=== PATIENT | female | born 2000 | race Caucasian/White ===

== ENCOUNTER 2020-04-14 09:22 | Outpatient (CLI) | payer BC, SELFPAY ==
--- NOTE | ~2020-04-14 | US_ITS ---
EXAMINATION: US OB <= 14 weeks fetus DATE: 04/14/2020 10:04 INDICATION: Spotting during first trimester . TECHNIQUE: Real-time pelvic ultrasound utilizing both a transvaginal and transabdominal probe was pe rformed. The interpreting radiologist was not present for the study. COMPARISON: None. FINDINGS: The uterus measures 10.3 x 5.8 x 7.9 cm. There is an intrauterine gestational sac. A yolk sac and fe fani pole are identified. The crown rump length measures 2.2 cm, which correlates with an estimated ge stational age of 8 weeks and 6 days. heart motion is identified measuring 173 beats per minute (bpm) by M-mode Doppler. The placenta appears to be developing posteriorly. No evident subchorionic h ematoma. The right ovary is not visualized. The left ovary measures 1.7 x 1.5 x 1.5 cm. There is no free fluid in the pelvis. IMPRESSION: 1. Single living fetus with heart rate of 173 bpm. 2. Gestational age by ultrasound of 8 weeks 6 day(s) +/- 6 day(s) with ultrasound estimated date of delivery (TICO) of 11/18/2020. Reviewed, dictated and finalized at location A. IMPRESSION: 1. Single living fetus with heart rate of 173 bpm. 2. Gestational age by ultrasound of 8 weeks 6 day(s) +/- 6 day(s) with ultraso und estimated date of delivery (TICO) of 11/18/2020.
== END 2020-04-14 09:23 | disposition home or self-care (01) ==
LOC: ANHIMG 09:35
PROVIDERS: PCP Family Medicine; Visit Provider Obstetrics & Gynecology Gynecology
DX: O26.851 Spotting complicating pregnancy, first trimester (principal); Z3A.08 8 weeks gestation of pregnancy
CPT/HCPCS: 76801

== ENCOUNTER 2020-05-20 10:44 | Outpatient (CLI) | payer BC, SELFPAY ==
[2020-05-20 11:11] LABS: Basophils Percent Auto 0.2 % (0.2-1.2); Eosinophils Absolute Auto 0.1 K/mm3 (0-0.3); Eosinophils Percent Auto 1.3 % (0-4.4); Hematocrit 37.3 % (37.0-47.0); Immature Granulocyte Absolute 0.03 K/mm3 (0.00-0.031); Immature Granulocyte Percent A 0.3 % (0-0.5); Lymphocytes Absolute Auto 1.37 K/mm3 (0.9-3.2); Lymphocytes Percent Auto 12.8 % (18.3-44.2); Mean Corpuscular HGB Conc 34.9 g/dl (32-36); Mean Corpuscular Hemoglobin 28.3 pg (26-34); Mean Corpuscular Volume 81.1 fl (80-100); Mean Platelet Volume 10.3 fl (7.4-10.4); Monocytes Absolute Auto 0.6 K/mm3 (0.1-0.6); Monocytes Percent Auto 5.2 % (2.6-8.5); Neutrophils Absolute Auto 8.6 K/mm3 (1.3-6.7); Neutrophils Percent Auto 80.2 % (45.5-73.1); Platelet Count Result 273 k/mm3 (150-375); Red Cell Distribution Width 13.7 % (11.5-14.5); White Blood Count 10.7 K/mm3 (4.5-10.0)
[2020-05-20 11:26] LABS: Hemoglobin A1C 4.9 % (<5.7)
[2020-05-20 11:57] LABS: Free T4 Free Thyroxine 1.05 ng/mL (0.78-2.19)
[2020-05-20 12:11] LABS: HIV 1/2 Ab P24 Ag Result Negative (Negative)
[2020-05-20 12:26] LABS: Hepatitis B Surface Antigen Negative (Negative); Rubella IgG Antibody 14.1 IU/ML
[2020-05-23 07:20] LABS: Rapid Plasma Reagin Non-Reactive (NonReactive)
== END 2020-05-20 10:45 | disposition home or self-care (01) ==
PROVIDERS: PCP Family Medicine; Visit Provider Obstetrics & Gynecology Gynecology
DX: Z36.9 Encounter for antenatal screening, unspecified (principal)
CPT/HCPCS: 36415; 82306; 83036; 84439; 84443; 85025; 86592; 86703; 86762; 86900; 86901; 87340; G0432

== ENCOUNTER 2020-06-30 13:01 | Outpatient (CLI) | payer BC, SELFPAY ==
--- NOTE | ~2020-06-30 | US_ITS ---
EXAMINATION: US OB /maternal detail EXAM DATE: 06/30/2020 14:02 INDICATION: anatomy. 2nd trimester. TECHNIQUE: Pelvic obstetrical transabdominal sonogram was performed by a technologist. There are mu ltiple grayscale and Doppler images available for interpretation. Comparison is made to prior examina tion from 04/14/2020. FINDINGS: There is a single fetus identified in variable presentation with a heart rate of 150 beats per minute. The placenta is located in the posterior position. There is no sonographic evidence of r etroplacental hemorrhage identified. Low-lying placenta, with margin to internal cervical os about 1. 4 cm. BIOMETRIC DATA: Biparietal diameter (BPD): 4.5cm ----------------> 19 weeks 4 days. Head circumference (HC): 17.1 cm ----------------> 19 weeks 5 days. Abdominal circumference (AC): 14.5 cm ----------> 19 weeks 6 days. Femur length (FL): 3.3 cm --------------------------> 20 weeks 2 days. These measurements are concordant. HC/AC ratio is 1.18 (The 5th -- 95th percentile range is 1.08-1.26. Estimated weight is 328 g +/- 49 g. This is the 39th percentile when the currently reported cl inical gestation age 20 weeks 1 day, clinical estimated date of delivery (TICO-OPE) 11/16/2020 is used. estimated gestational age based on measurements from this exam is 19 weeks 6 days, with an est imated date of delivery (TICO-AUA) 11/18/2020. ANATOMIC SURVEY: The following anatomy is identified and is sonographically normal in appearance: Cerebral ventricles Cerebellum Cisterna magna Nuchal fold CTL-spine Four-chamber heart Diaphragm Stomach Kidneys Bladder Three-vessel cord Cord insertion IMPRESSION: 1. Single fetus in variable presentation with heart rate 150 beats per minute. 2. Estimated weight of 328 grams, 39th percentile using the currently reported clinical gestat ion age of 19 weeks 6 days, TICO(OPE) 11/18. 3. Low-lying placenta. Reviewed, dictated and finalized at location A. IMPRESSION: 1. Single fetus in variable presentation with heart rate 150 beats per minute. 2. Estimated weight of 328 grams, 39th percentile using the currently re ported clinical gestation age of 19 weeks 6 days, TICO(OPE) 11/18. 3. Low-lying placenta.
== END 2020-06-30 13:02 | disposition home or self-care (01) ==
PROVIDERS: PCP Family Medicine; Visit Provider Nurse Practitioner
DX: Z36.9 Encounter for antenatal screening, unspecified (principal); Z3A.19 19 weeks gestation of pregnancy
CPT/HCPCS: 76805

== ENCOUNTER 2020-07-11 17:30 | Outpatient (CLI) | payer BC, SELFPAY | END 2020-07-11 17:55 | disposition home or self-care (01) | LOC: ANHOBOP 17:37 → ANHOBPP 17:40 | PROVIDERS: PCP Family Medicine; Visit Provider Obstetrics & Gynecology Gynecology | DX: O36.8121 Decreased fetal movements, second trimester, fetus 1 (principal); Z3A.21 21 weeks gestation of pregnancy | CPT/HCPCS: 99199 ==

== ENCOUNTER 2020-07-29 10:21 | Outpatient (CLI) | payer BC, SELFPAY ==
--- NOTE | ~2020-07-29 | US_ITS ---
EXAMINATION: US OB /maternal detail DATE: 07/29/2020 10:51 INDICATION: Low lying placenta TECHNIQUE: Real-time ultrasound of the pelvis was performed. The interpreting radiologist was not pre sent for the study. COMPARISON: None. FINDINGS: There is a single living fetus in breech presentation. The placenta is posterior and not low-lying w ith caudal margin 7.7 cm from the internal cervical os. heart rate is 157 beats per minute (bpm ). The amniotic fluid volume is subjectively normal. IMPRESSION: 1. Single living fetus in breech presentation with heart rate of 157 bpm. 2. Normal posterior placenta which is not low-lying. Reviewed, dictated and finalized at location H. [employer] IMPRESSION: 1. Single living fetus in breech presentation with heart rate of 157 bpm . 2. Normal posterior placenta which is not low-lying.
== END 2020-07-29 10:22 | disposition home or self-care (01) ==
LOC: ANHIMG 10:22
PROVIDERS: PCP Family Medicine; Visit Provider Obstetrics & Gynecology Gynecology
DX: O44.12 Complete placenta previa with hemorrhage, second trimester (principal); Z3A.24 24 weeks gestation of pregnancy
CPT/HCPCS: 76805

== ENCOUNTER 2020-08-29 10:18 | Outpatient (CLI) | payer BC, SELFPAY ==
[2020-08-29 12:10] LABS: Hemoglobin 9.7 g/dL (12.0-15.0)
[2020-08-29 12:28] LABS: Glucose 1 Hour PP 50gm Dose 113 mg/dL
[2020-08-29 13:06] LABS: HIV 1/2 Ab P24 Ag Result Negative (Negative)
[2020-08-29 13:29] LABS: Vitamin D 25 Hydroxy 32.8 ng/mL
== END 2020-08-29 10:19 | disposition home or self-care (01) ==
LOC: ANHLAB 10:19
PROVIDERS: PCP Family Medicine; Visit Provider Obstetrics & Gynecology Gynecology
DX: Z34.93 Encounter for supervision of normal pregnancy, unspecified, third trimester (principal); Z3A.00 Weeks of gestation of pregnancy not specified
CPT/HCPCS: 36415; 82306; 82947; 85014; 85018; 86703; 86850; G0432

== ENCOUNTER 2020-10-10 10:48 | Outpatient (CLI) | payer BC, SELFPAY ==
[2020-10-10 13:20] LABS: Hemoglobin 10.4 g/dL (12.0-15.0); Mean Corpuscular HGB Conc 32.5 g/dl (32-36); Mean Corpuscular Hemoglobin 27.6 pg (26-34); Mean Corpuscular Volume 84.9 fl (80-100); Mean Platelet Volume 10.1 fl (7.4-10.4); Platelet Count Result 264 k/mm3 (150-375); Red Blood Count 3.77 M/mm3 (4.2-5.4); Red Cell Distribution Width 16.1 % (11.5-14.5); White Blood Count 10.5 K/mm3 (4.5-10.0)
== END 2020-10-10 10:49 | disposition home or self-care (01) ==
PROVIDERS: PCP Family Medicine; Visit Provider Obstetrics & Gynecology Gynecology
DX: Z34.93 Encounter for supervision of normal pregnancy, unspecified, third trimester (principal); Z3A.00 Weeks of gestation of pregnancy not specified
CPT/HCPCS: 36415; 85027

== ENCOUNTER 2020-11-02 21:32 | Observation (INO) | payer BC, MEDICAID, SELFPAY ==
--- NOTE | 2020-11-02 21:32 | OBADM ---
This patient, Avril Fowler, admitted to the OB room OB Post 115 for observation. Patient/family oriented to hospital policies and general routines including ID bracelet, bed and alarms, visiting hours, pain management, procedures, bathroom and other care routines, personal items, smoking policy, room service/diet, and visiting hours. Patient/Family are encouraged to report perceived risks to care and to ask questions if they do not understand what they are told or what they should do.
[2020-11-02 21:45] VITALS: BMI 38.9
[2020-11-02 21:48] VITALS: BP 134/80; PULSE 90
[2020-11-02 22:01] VITALS: BP 135/75; PULSE 90
[2020-11-02 22:16] VITALS: BP 133/72; PULSE 87
[2020-11-02 22:31] VITALS: BP 124/71; PULSE 79
[2020-11-02 22:46] VITALS: BP 95/78; PULSE 87
--- NOTE | 2020-11-02 23:05 | PC.NURSE ---
Dr. Castañeda notified of admission and assessment. Pt can be discharged home if not cervical change. Pt BP is WNL. Pt appears comfortble. Pt states she has medication for nausea and will take Tylenol at home. Pt agreeable with plan for discharge. SVE 2.5 cm. Pt states she has been same with office exam.
--- NOTE | 2020-11-12 09:40 | PM.OBTRLD ---
OB - Triage/Final Diagnosis Visit Information Comments/Additional reasons for admission: I have assessed the risk for this patient, Avril Fowler, and determined that she would benefit from observation care. Final Diagnosis (1) False labor: Code(s): O47.9 - False labor, unspecified Status: Acute
== END 2020-11-02 23:18 | disposition home or self-care (01) ==
PROVIDERS: Admitting Provider Obstetrics & Gynecology; PCP Family Medicine; Visit Provider Obstetrics & Gynecology
DX: O47.1 False labor at or after 37 completed weeks of gestation (principal); Z3A.38 38 weeks gestation of pregnancy
CPT/HCPCS: G0378; G0379

== ENCOUNTER 2020-11-10 05:55 | Inpatient (IN) | payer BC, MEDICAID, SELFPAY ==
[2020-11-10] VITALS (95 sets, daily range): BP systolic 80–138; BP diastolic 54–99; PULSE 66–131; RESP 16–17; TEMP 36.6–36.9; O2SAT 98–100; BMI 38.8
[2020-11-10 06:50] LABS: Basophils Percent Auto 0.3 % (0.2-1.2); Eosinophils Absolute Auto 0.2 K/mm3 (0-0.3); Eosinophils Percent Auto 1.8 % (0-4.4); Hematocrit 33.3 % (37.0-47.0); Hemoglobin 11.2 g/dL (12.0-15.0); Immature Granulocyte Absolute 0.06 K/mm3 (0.00-0.031); Immature Granulocyte Percent A 0.6 % (0-0.5); Lymphocytes Absolute Auto 1.75 K/mm3 (0.9-3.2); Lymphocytes Percent Auto 16.2 % (18.3-44.2); Mean Corpuscular HGB Conc 33.6 g/dl (32-36); Mean Corpuscular Volume 83.3 fl (80-100); Mean Platelet Volume 9.6 fl (7.4-10.4); Monocytes Percent Auto 9.4 % (2.6-8.5); Neutrophils Absolute Auto 7.8 K/mm3 (1.3-6.7); Neutrophils Percent Auto 71.7 % (45.5-73.1); Platelet Count Result 217 k/mm3 (150-375); Red Cell Distribution Width 15.9 % (11.5-14.5); White Blood Count 10.8 K/mm3 (4.5-10.0)
[2020-11-10] MEDS: ceFAZolin 2 GM/D5W 50 ML 2 GM/50 ML BAG IVPB (06:59)
[2020-11-10] MEDS: LACTATED RINGERS 1,000 ML 125 ML IV CONT ×2 (07:00→08:13)
[2020-11-10] MEDS: OXYTOCIN 30 UNITS/NS 500 ML 30 UNITS/500 ML BAG IV CONT (07:00)
--- NOTE | 2020-11-10 07:45 | WPDOBADMIT ---
Obstetrics - Admit Note Admission Note: record reviewed. No pertinent additions to the history and/or any subsequent changes in the physical findings that are not consistent with the expected course of the were found. Additions to the history and/or subsequent changes in the physical findings follow. None.Here for MIL. Cervix 4/-2 AROM with clear fluid. FHTs reactive
[2020-11-10 07:50] LABS: Rapid Plasma Reagin Non-Reactive (NonReactive)
--- NOTE | 2020-11-10 08:08 | LDADM ---
This patient, Avril Fowler, was admitted to Labor/Delivery/Recovery 104 on 11/10/20 at 05:55. Plans for labor, pain management and were discussed with patient. Patient/family oriented to hospital policies and general routines including ID bracelet, bed and alarms, visiting hours, pain management, procedures, bathroom and other care routines, personal items, smoking policy, room service/diet and guest tray routines, security routines, and visiting hours. Patient/Family are encouraged to report perceived risks to care and to ask questions if they do not understand what they are told or what they should do. See OBIX for further documentation.
--- NOTE | 2020-11-10 08:13 | WPDANESEPPF ---
Anes - Initial Pre Proc Eval Date/Time: 11/10/20 08:13 Surgeon: Ivett Metz MD Pre Op Diagnosis: Induction of Labor Patient Data Age: 20 Gender: F Height: 1.65 m Weight: 105.9 kg Last Vital Signs Temp 36.9 C 11/10/20 07:05 Pulse 74 11/10/20 08:01 BP 107/79 11/10/20 08:01 Allergies Allergy/AdvReac Type Severity Reaction Status Date / Time Penicillins Allergy Mild Verified 02/09/19 02:50 Sulfa (Sulfonamide Allergy Mild Verified 02/09/19 02:50 Antibiotics) Home Medications Medication Instructions Recorded Confirmed Type PNV cmb#95-ferrous fumarate-FA 1 tablet PO DAILY 10/20/20 11/02/20 History [] docusate sodium 50 mg PO DAILY 10/20/20 11/02/20 History ergocalciferol (vitamin D2) See Rx Instructions .ROUTE .COMPLEX 10/20/20 11/02/20 History [Vitamin D2] ferrous sulfate [Iron (ferrous 325 mg PO BID 10/20/20 11/02/20 History sulfate)] sertraline 50 mg PO DAILY 10/20/20 11/02/20 History Laboratory Tests 11/10/20 11/10/20 06:25 06:25 WBC 10.8 K/mm3 H K/mm3 (4.5-10.0) RBC 4.00 M/mm3 L M/mm3 (4.2-5.4) Hgb 11.2 g/dL L g/dL (12.0-15.0) Hct 33.3 % L % (37.0-47.0) MCV 83.3 fl fl (80-100) MCH 28.0 pg pg (26-34) MCHC 33.6 g/dl g/dl (32-36) RDW 15.9 % H % (11.5-14.5) Plt Count 217 k/mm3 k/mm3 (150-375) MPV 9.6 fl fl (7.4-10.4) Immature Gran % (Auto) 0.6 % H % (0-0.5) Neut % (Auto) 71.7 % % (45.5-73.1) Lymph % (Auto) 16.2 % L % (18.3-44.2) [place] % (Auto) 9.4 % H % (2.6-8.5) Eos % (Auto) 1.8 % % (0-4.4) Baso % (Auto) 0.3 % % (0.2-1.2) Lymph # (Auto) 1.75 K/mm3 K/mm3 (0.9-3.2) [place] # (Auto) 1.0 K/mm3 H K/mm3 (0.1-0.6) Eos # (Auto) 0.2 K/mm3 K/mm3 (0-0.3) Baso # (Auto) 0.0 K/mm3 K/mm3 (0.0-0.1) Abs Immat Gran (auto) 0.06 K/mm3 H K/mm3 (0.00-0.031) Absolute Neuts (auto) 7.8 K/mm3 H K/mm3 (1.3-6.7) Absolute Nucleated RBC 0.0 K/mm3 K/mm3 (0.0-0.012) Nucleated RBC % 0.0 % % (0.0-0.2) RPR Non-reactive (NonReactive) Patient hx anesthesia problems: none Family hx anesthesia problems: none PMFSH Family History Family History (Updated 10/20/20 @ 12:39 by Dario Turner RN) Other Rheumatoid arthritis Mother Rheumatoid arthritis Social History Social History Smoking status: Former smoker Substance use: never Gender identity (if verbalized by the patient): Female Spiritual care concerns: No Anes - Eval Final PreProcedure Day of Procedure 11/10/20 08:13 Patient weight: obese Heart: regular rate and rhythm Lungs: clear to auscultation and normal air movement Airway: Mallampati scale class II Neurological: alert and oriented Last oral intake: >/= 8 hours ASA classification: II Emergent: no Anesthetic plan: proceed Anesthesia type and monitoring: regional epidural Informed Consent: The patient's anesthetic plan and its attendant risks and benefits were discussed with the patient/family/POA. Questions were solicited and answers provided to the satisfaction of the patient/family/POA.
--- NOTE | 2020-11-10 12:19 | PM.OBPRVD ---
OB - Delivery Note Procedure Delivery date: 11/10/20 Procedure: events: Labor Induction Intrapartal events: None Induction method: AROM and per pitocin protocol Delivery monitor: external FHT and external uterine Route of delivery: Laceration Description: Periurethral (left) and Labial (right) Delivery repair: vicryl (3-0 and 4-0 on sh) Specimen: No Quantitative Blood Loss (ml): 352 Anesthesia type: Epidural Disposition: floor Baby Date of : 11/10/20 Weeks of gestation at delivery: 39 Infant gender: Female Weight (pounds): 8 Weight (ounces): 3 presentation: vertex position: Right Occiput Anterior Placenta delivery description: Spontaneous cord vessel description: 3 Vessels score one minute: 9 score five minutes: 9
--- NOTE | 2020-11-10 12:20 | PM.OBDSVD ---
DS: Admitting Diagnosis Admitting Diagnosis Admitting Diagnosis: IUP 39 wk DS: Discharge Diagnosis Discharge Diagnosis (1) (normal spontaneous vaginal delivery): Code(s): O80 - Encounter for full-term uncomplicated delivery Status: Acute OB - DS: Summary OB Procedures : Ultrasound OB Procedures Intrapartum: Spontaneous Vag Delivery OB Procedures: : None Peripartum Data Delivery Method: Natural Vaginal Laceration Description: Periurethral and Labial complications: none Status at Discharge Functional status at discharge: independent ambulation Overall status at discharge: patient is not back to baseline Time Spent with Patient Time attestation: Total time spent providing and/or coordinating discharge services: DS: Data Data Completed and Pending Labs on day of discharge: Labs from last 24 hours 11/10/20 11/10/20 11/10/20 06:25 06:25 06:25 WBC 10.8 H RBC 4.00 L Hgb 11.2 L Hct 33.3 L MCV 83.3 MCH 28.0 MCHC 33.6 RDW 15.9 H Plt Count 217 MPV 9.6 Immature Gran % (Auto) 0.6 H Neut % (Auto) 71.7 Lymph % (Auto) 16.2 L [place] % (Auto) 9.4 H Eos % (Auto) 1.8 Baso % (Auto) 0.3 Lymph # (Auto) 1.75 [place] # (Auto) 1.0 H Eos # (Auto) 0.2 Baso # (Auto) 0.0 Abs Immat Gran (auto) 0.06 H Absolute Neuts (auto) 7.8 H Absolute Nucleated RBC 0.0 Nucleated RBC % 0.0 RPR Non-reactive Blood Type A Positive Antibody Screen Negative Discharge Plan Discharge Attending physician on discharge: Ivett Metz Discharging Clinician: Maxwell Castañeda Anticipated Discharge Date/Time: 11/12/20 12:21 Patient Disposition: Home, Self-Care Activity: may shower and pelvic rest Diet: regular Discharge Instructions: Education: Mom and Baby Guide Given to: Mother Follow-Up: Call your delivering provider's office for an appointment to be seen in: 6 Weeks Mom and baby should come to the [facility] for the follow-up appointment. Appointment Date/Time: November 21, 2020 at 9:00 am What to expect at your follow-up visit: Blood Pressure Check Physical Assessment Call [phone] if you are unable to keep your appointment time. BREAST CARE: * Wear a snug supportive bra. * For engorgement discomfort: Breast Feeding: * Apply warm moist washcloths * Express milk as needed to relieve engorgement * Wear loose clothing * For sore nipples: * Identify correct latch-on * Apply warm moist washcloths before and after nursing * Air dry nipples after nursing * May apply Lansinoh cream to nipples EPISIOTOMY/PERINEAL CARE: * Until bleeding stops, use your ana bottle after urinating * Change your pad frequently throughout the day * You may take sitz baths several times a day (fill your bathtub with warm water and soak for 20 minutes.) Do NOT bathe in the water * No tub baths until seen by your physician - You may shower ACTIVITY: * Rest as much as possible. * Do not exercise or lift anything heavier than your baby (such as laundry or other children.) * Avoid stairs or driving as much as possible for about 2 weeks. * Do not put anything into the vagina. No douching, tampons, or sexual activity until seen by physician. NOTIFY PHYSICIAN IF YOU HAVE ANY QUESTIONS OR IF ANY OF THE FOLLOWING SYMPTOMS OCCUR: * If your vaginal area becomes red, swollen, or more painful than what you have experienced in the hospital. * If your vaginal bleeding becomes foul smelling. * If your vaginal bleeding becomes more heavy than a period or if your bleeding changes from pink to bright red. However, you may pass an occasional walnut-sized clot once or twice for the first week . * If you experience a sharp, shooting pain in your calves. * If you discover a hard, reddened area on your breast or if you exper
[2020-11-10] MEDS: OXYTOCIN 30 UNITS/NS 500 ML 30 UNITS/500 ML BAG 125 UNITS IV CONT (12:44)
--- NOTE | 2020-11-10 14:40 | PC.NURSE ---
Patient transferred to post room #282 via wheelchair. Support person present. Oriented to unit, room, information board, rooming in, admission packet and security measures. Patient verbalizes understanding.
[2020-11-10] MEDS: WITCH HAZEL 40 PADS 1 PAD TOPICAL (15:33)
[2020-11-10] MEDS: BENZOCAINE 20% AER SPR (*SP) 56 GM CAN 1 SPRAY TOPICAL (15:33)
[2020-11-10] MEDS: IBUPROFEN 600 MG TABLET PO ×2 (16:28→23:24)
[2020-11-11 04:35] VITALS: BP 118/62; PULSE 74; RESP 18; TEMP 36.9
[2020-11-11 05:25] LABS: Hematocrit 32.3 % (37.0-47.0); Hemoglobin 10.7 g/dL (12.0-15.0)
[2020-11-11] MEDS: IBUPROFEN 600 MG TABLET PO ×2 (08:42→21:58)
[2020-11-11] MEDS: WITCH HAZEL 40 PADS 1 PAD TOPICAL (08:43)
[2020-11-11 09:05] VITALS: BP 129/74; PULSE 80; RESP 18; TEMP 37.2; O2SAT 99
--- NOTE | 2020-11-11 09:44 | WPDANLDPN2 ---
Anes-Prog Note L&D Date/Time: 11/11/20 09:44 Comfortable throughout: labor and delivery Neuraxial method: epidural Epidural/Spinal procedure site: clean & non-tender Neuro status: Neuro function grossly intact. Cardiovascular status: normal Respiratory status: normal Airway patency: baseline Mental status: baseline Post-Op hydration status: normal Vital Signs: Last Vital Signs Temp 37.2 C 11/11/20 09:05 Pulse 80 11/11/20 09:05 Resp 18 11/11/20 09:05 BP 129/74 11/11/20 09:05 Pulse Ox 99 11/11/20 09:05 Pain score (VAS): 0 Post-procedural complaints: none Patient feedback: Patient satisfied with anesthetic care.
--- NOTE | 2020-11-11 11:00 | PC.NURSE ---
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 Mother, reports has fed well since . Mother has nipple discomfort with latch during most of the feeding. Reviewed infant feeding cues, frequencies, duration of feedings, feeding elimination flow sheet, and signs of adequate intake. Requested mother to call out for RN assistance/observation next feeding. Instructed feeding should be initiated three hours from start of last feeding or if feeding cues are noted before. Mother voiced understanding of information shared.
[2020-11-11 12:16] VITALS: BP 114/53; PULSE 86; RESP 18; TEMP 36.8; O2SAT 99
--- NOTE | 2020-11-11 12:53 | PM.OBPNVD ---
OB - PN: Subj Subjective Date/time seen: 11/11/20 12:53 no complaints OB - PN: Obj Data Labs CBC & Chem 7: 11/11/20 04:47 Labs: Laboratory Results - last 24 hr 11/11/20 04:47 Hgb 10.7 L Hct 32.3 L OB - PN A/P Assessment and Plan (1) (normal spontaneous vaginal delivery): Code(s): O80 - Encounter for full-term uncomplicated delivery Status: Acute Assessment and Plan: continue with pp care. Time Spent With Patient Time: Total time spent is greater than 50% in coordination of care (as documented) at patient's floor/unit and/or counseling patient: Exam Narrative: Exam Narrative: ff below umbilicus
[2020-11-11 19:50] VITALS: BP 136/78; PULSE 70; RESP 18; TEMP 36.6; O2SAT 99
--- NOTE | 2020-11-11 19:50 | PC.NURSE ---
Patient viewed the discharge video Mother & Baby Care, The First Two Weeks online. Patient was given the opportunity and encouraged to ask questions. Patient verbalized understanding of information shared and has been given the mother/baby guide for home reference.
[2020-11-12 08:00] VITALS: PULSE 70; RESP 18; O2SAT 99
--- NOTE | 2020-11-12 08:48 | P.PNOB_ITS ---
OB - PN: Subj Subjective Date/time seen: 11/12/20 08:48 desires home no complaints OB - PN: Obj Data Labs CBC & Chem 7: 11/11/20 04:47 OB - PN A/P Assessment and Plan (1) (normal spontaneous vaginal delivery): Code(s): O80 - Encounter for full-term uncomplicated delivery Status: Acute Assessment and Plan: d/c home Time Spent With Patient Time: Total time spent is greater than 50% in coordination of care (as documented) at patient's floor/unit and/or counseling patient: Exam 2 Narrative: Exam Narrative: ff below umbilicus
[2020-11-12 09:00] VITALS: BP 115/65; PULSE 75; RESP 18; TEMP 36.6; O2SAT 99
[2020-11-12] MEDS: IBUPROFEN 600 MG TABLET PO (09:20)
[2020-11-12] MEDS: DOCUSATE SODIUM 100 MG CAPSULE PO (09:20)
[2020-11-14 08:48] VITALS: BP 129/64; PULSE 77; RESP 16; TEMP 36.7; O2SAT 99
== END 2020-11-12 12:17 | disposition home or self-care (01) | DRG 807 ==
LOC: ANHLDR 12:22 → ANHOB2 11-11 11:06 → ANHLDR 11-14 20:16 → ANHOB2 11-14 20:16
PROVIDERS: Admitting Provider Obstetrics & Gynecology Gynecology; PCP Family Medicine; Visit Provider Obstetrics & Gynecology
DX: O99.824 Streptococcus B carrier state complicating childbirth (principal); Z37.0 Single live birth; Z3A.39 39 weeks gestation of pregnancy; O99.214 Obesity complicating childbirth; E66.9 Obesity, unspecified; O70.1 Second degree perineal laceration during delivery
CPT/HCPCS: 36415; 85014; 85018; 85025; 86592; 86850; 86900; 86901; A9270; J0690; J2590; J2795; J7120

== ENCOUNTER → 2021-03-14 14:18 | Outpatient (CLI) | payer BC, SELFPAY ==
--- NOTE | ~2021-03-14 | XR_ITS ---
XR lumbar spine 2-3V DATE: 03/14/2021 14:39 INDICATION: Back pain TECHNIQUE: Standing AP, lateral and coned lateral lumbosacral views COMPARISON: None FINDINGS: There is rotatory levoscoliosis of the lumbar and lower thoracic spine. The lumbar pedicles appear intact. No fracture or bone destruction or spondylolisthesis. Lumbar and lumbosacral interspa lili are relatively preserved. The sacroiliac joints are intact. IMPRESSION: Rotatory levoscoliosis Reviewed, dictated and finalized at location A. IMPRESSION: Rotatory levoscoliosis
== END ==
PROVIDERS: Visit Provider Physician Assistant
DX: M54.9 Dorsalgia, unspecified (principal)
CPT/HCPCS: 72100

== ENCOUNTER 2021-03-15 12:51 | Emergency (ER) | payer BC, SELFPAY ==
--- NOTE | ~2021-03-15 | XR_ITS ---
EXAMINATION: XR lumbar spine min 4V EXAM DATE: 03/15/2021 13:42 INDICATION: Fall. Mid to low back pain. TECHNIQUE: Lumber spine frontal, lateral, bilateral oblique projections. Coned down frontal and lat eral L5-S1 lumbar projections for interpretation. Comparison is made to prior examination from yester day. FINDINGS: There is mild lumbar levoscoliosis. There is mild lumbar facet arthropathy. The vertebral b odies are aligned in the AP dimension. Vertebral body and disc heights are well-maintained. There is mild anterior wedging of the T10 and T11 vertebral body which is more likely chronic or congenital fi nding than acute compression fracture (there is no step off or cortical break to suggest it is acute) . Additionally, correlation made to a CT abdomen pelvis 2015 and probably no significant change sami red to that time. Sacrum, sacroiliac joints, sacral arcuate lines are intact. There are no acute frac tures identified. IMPRESSION: 1. Minimal anterior wedged appearance T10-11 likely chronic or congenital. 2. Mild lumbar facet arthropathy. 3. Mild levoscoliosis. Reviewed, dictated and finalized at location B.
[2021-03-15 13:24] VITALS: BP 130/66; PULSE 72; RESP 16; TEMP 36.7; O2SAT 100
--- NOTE | 2021-03-15 16:11 | ED.BACK ---
HPI - Back Pain/Injury General Chief Complaint: Back Pain/Injury Stated Complaint: fell at work, back pain Time Seen by Provider: 03/15/21 15:27 Source: patient Mode of arrival: ambulatory Limitations: no limitations History of Present Illness HPI Narrative: Patient is a 21 year old female who presents complaining of thoracic and lumbar spine pain after fall onto gravel this afternoon. Patient reports she was walking and slipped, landing directly on back. She denies LOC, denies all other injuries. She denies numbness or tingling in extremities, she denies all other complaints at this time. MD elicited complaint: back pain and fall Related Data Home Medications Medication Instructions Recorded Confirmed PNV cmb#95-ferrous fumarate-FA 1 tablet PO DAILY 10/20/20 11/02/20 [] docusate sodium 50 mg PO DAILY 10/20/20 11/02/20 ergocalciferol (vitamin D2) See Rx Instructions .ROUTE .COMPLEX 10/20/20 11/02/20 [Vitamin D2] ferrous sulfate [Iron (ferrous 325 mg PO BID 10/20/20 11/02/20 sulfate)] sertraline 50 mg PO DAILY 10/20/20 11/02/20 Allergies Allergy/AdvReac Type Severity Reaction Status Date / Time Penicillins Allergy Mild Unknown Verified 03/15/21 14:52 Sulfa (Sulfonamide Allergy Mild Unknown Verified 03/15/21 14:52 Antibiotics) Review of Systems Review of Systems: Narrative: CONSTITUTIONAL: Denies fever, chills, or sweats. EYES: Denies visual changes, redness, or discharge. ENT: Denies rhinorrhea, congestion, sore throat, or otalgia. CARDIOVASCULAR: Denies chest pain, palpitations, or edema. RESPIRATORY: Denies cough or dyspnea. GASTROINTESTINAL: Denies abdominal pain, nausea, vomiting, or diarrhea. GENITOURINARY: Denies dysuria or hematuria. SKIN: Denies rash or itching. MUSCULOSKELETAL: Reports lumbar and thoracic back pain NEUROLOGIC: Denies headache, numbness, dizziness, or weakness. PSYCHIATRIC: Denies anxiety or depression. [facility] Past Medical History Medical History False labor Family History Family History Other Rheumatoid arthritis Mother Rheumatoid arthritis Social History Social History Smoking status: Former smoker Substance use: never Gender identity (if verbalized by the patient): Female Spiritual care concerns: No Comments At the time of signature, I have reviewed and agree with nursing past medical, surgical, social, and family history unless otherwise noted. Please see nursing chart for further information. There is no relevant family history pertinent to the presenting complaint. Exam Narrative: Exam Narrative: GENERAL: Well-appearing, well-nourished, and in no acute distress. HEAD: Normocephalic, atraumatic. EYES: EOMI. No redness or drainage. Conjunctiva are normal. ENT: Mucous membranes pink and moist. CHEST: No respiratory distress. Clear to auscultation. HEART: Regular rate and rhythm. GI: Soft, nontender without rebound, or guarding. No distention. Bowel sounds normal in all quadrants. MUSCULOSKELETAL: Tenderness with palpation to lower thoracic and lumbar spine, no step-offs. Palpated. EXTREMITIES: Normal range of motion. No edema. SKIN: Warm, dry, no rash. NEURO: No focal deficits. Alert and oriented x3. Gait steady. PSYCH: Normal affect. No signs of depression or anxiety. Course Vital Signs Vital signs: Vital Signs Temperature 36.7 C 03/15/21 13:24 Pulse Rate 72 03/15/21 13:24 Respiratory Rate 16 03/15/21 13:24 Blood Pressure 130/66 03/15/21 13:24 Pulse Oximetry 100 03/15/21 13:24 Temperature 36.7 C 03/15/21 13:24 Pulse Rate 72 03/15/21 13:24 Respiratory Rate 16 03/15/21 13:24 Blood Pressure 130/66 03/15/21 13:24 Pulse Oximetry 100 03/15/21 13:24 Reviewed-patient is informed that they may have pre-hypertension or hypertension based o
[2021-03-15] MEDS: KETOROLAC (*BKC) 60 MG/2 ML VIAL IM (17:12)
== END 2021-03-15 17:28 | disposition home or self-care (01) ==
PROVIDERS: Emergency Provider Nurse Practitioner; PCP Family Medicine
DX: S39.92XA Unspecified injury of lower back, initial encounter (principal); S29.9XXA Unspecified injury of thorax, initial encounter; Z87.891 Personal history of nicotine dependence; W01.0XXA Fall on same level from slipping, tripping and stumbling without subsequent striking against object, initial encounter
CPT/HCPCS: 72110; 96372; 99283; J1885

== ENCOUNTER 2022-05-27 19:07 | Emergency (ER) | payer OTHER, BC, SELFPAY ==
--- NOTE | ~2022-05-27 | XR_ITS ---
EXAM: XR foot LT min 3V DATE: 05/27/2022 19:30 HISTORY: ROLLED THE LT FOOT, LATERALLY . COMPARISON: None available. FINDINGS: Normal mineralization. No fracture or dislocation. No lytic or blastic lesion. Joint space s are maintained. Achilles enthesopathy. No erosion or periosteal change. Soft tissues within normal limits. IMPRESSION: No acute osseous finding in the left foot. Reviewed, dictated and finalized at location K.
--- NOTE | 2022-05-27 19:08 | ED.LOWEXIN ---
HPI - Extremity Injury (Lower) General Stated Complaint: Left Foot/Ankle Pain Time Seen by Provider: 05/27/22 19:08 Source: patient Mode of arrival: ambulatory Limitations: no limitations History of Present Illness HPI Narrative: Avril is a 22-year-old female patient presenting to the clinic today with complaints of left foot pain. She reports she fell on a crack in the concrete at a gas station. She reports she is having pain to the left lateral side of her foot. She states that she inverted her foot. She denies any ankle pain Related Data Home Medications Medication Instructions Recorded Confirmed bupropion HCl 150 mg 24 hr tablet, 150 mg PO DIRECTED 05/27/22 05/27/22 extended release ciprofloxacin HCl 500 mg tablet 500 mg PO BID 05/27/22 05/27/22 naproxen 500 mg tablet 500 mg PO DIRECTED 05/27/22 05/27/22 sertraline 100 mg tablet 100 mg PO DAILY 05/27/22 05/27/22 Allergies Allergy/AdvReac Type Severity Reaction Status Date / Time Penicillins Allergy Mild Unknown Verified 05/27/22 19:14 Sulfa (Sulfonamide Allergy Mild Unknown Verified 05/27/22 19:14 Antibiotics) Review of Systems Review of Systems: Pertinent positives per HPI. Patient denies any fever, chills, rash, headache, visual changes, dizziness, cough, runny nose, sore throat, shortness of breath, chest pain, palpitations, nausea, vomiting, diarrhea, constipation, abdominal pain, or any urinary issues. PMFSH Past Medical History Medical History False labor Family History Family History Other Rheumatoid arthritis Mother Rheumatoid arthritis Social History Social History Smoking status: Former smoker Substance use: never Gender identity (if verbalized by the patient): Female Spiritual care concerns: No Comments At the time of my signature, I reviewed and agree with the nursing past medical, surgical, social, and family history. There is no relevant family history pertinent to the patient complaint. Exam Narrative: General: Well-developed, well nourished, in no apparent distress Head: Normocephalic, atraumatic. Cardio: Regular rate and rhythm, s1 and s2 normal, no murmur appreciated. Resp: Clear to auscultation bilaterally, no rhonchi, rales, wheezing or rubs. Musculoskeletal: No deformity, tender to palpation over the dorsal lateral left foot, mild swelling and bruising noted over this area, pain with dorsal flexion and plantar flexion, limited range of motion due to pain, muscle strength strong and equal, peripheral pulse strong, no cyanosis, limping gait and station Course Course Emergency Course: Portions of this record may have been created with voice recognition software. Level of Care: Express Care Visit Vital Signs Vital signs: Vital signs reviewed MDM - Extremity Injury (Lower) MDM Narrative Medical decision making narrative: At the time of visit patient is resting comfortably on exam table. I suspect the patient has a foot sprain. X-ray shows negative fracture or malalignment of the left foot. Supportive measures were discussed with the patient she voiced understanding of discharge instructions and agrees to treatment plan Differential Diagnosis Differential diagnosis: Likely other (Foot sprain, foot fracture) Imaging Data Radiologist's impression: Close Foot X-Ray (Signed) Elan Rebollar - 05/27/22 Launch?[facility] [place] [address] XRay Report Signed Patient: Avril Fowler : 2000 MR#: [id number] Age/Sex: 22 / F Acct:[id number] Loc: [facility]? ? ADM Date: 05/27/22Attending Dr: Ordering Physician: Justen Dowling APRN Date of Service: 05/27/22 Procedure(s): XR foot LT min 3V Accession
[2022-05-27 19:22] VITALS: BP 125/70; PULSE 69; RESP 16; TEMP 36.2; O2SAT 100
== END 2022-05-27 19:47 | disposition home or self-care (01) ==
PROVIDERS: Emergency Provider Nurse Practitioner Family; PCP Family Medicine
DX: S93.602A Unspecified sprain of left foot, initial encounter (principal); W01.0XXA Fall on same level from slipping, tripping and stumbling without subsequent striking against object, initial encounter
CPT/HCPCS: 73630; 99213; G0463

== ENCOUNTER 2022-08-29 21:57 | Emergency (ER) | payer BC, SELFPAY ==
[2022-08-29 22:14] VITALS: BP 136/68; PULSE 80; RESP 16; O2SAT 97
[2022-08-29 22:38] LABS: Add Urine Microscopic? YES; Appearance Urine Clear (Clear); Bilirubin Urine Negative (Negative); Blood Urine Negative (Negative); Color Urine Light Yellow (Yellow); Glucose Urine UA Negative (Negative); Ketones Urine Negative (Negative); Leukocyte Esterase Ur 2+ LEU/UL (Negative); Nitrate Urine Negative (Negative); Protein Urine Negative (Negative)
[2022-08-29 22:45] LABS: Mucus Urine Rare /lpf; Squamous Epithelial Cell Urine Moderate /hpf (Few)
--- NOTE | 2022-08-29 23:26 | ED.DENTAL ---
HPI - Dental/Oral General Chief complaint: Dental/Oral Stated complaint: toothache Time Seen by Provider: 08/29/22 22:16 History of Present Illness HPI Narrative: 22-year-old female presents to the emergency room for evaluation of left upper molar and left lower molar dental pain for 3 weeks. Patient states that she has a dentist but is unable to get into be evaluated and treated by him for 3 more weeks. Patient admits to a significant history of cocaine use which left her very poor dentition patient. Patient has been taking Tylenol and ibuprofen with minimal pain relief. Patient also complains of a sudden onset of dysuria and clear odorless vaginal discharge. Related Data Home Medications Medication Instructions Recorded Confirmed bupropion HCl 150 mg 24 hr tablet, 150 mg PO DIRECTED 05/27/22 05/27/22 extended release ciprofloxacin HCl 500 mg tablet 500 mg PO BID 05/27/22 05/27/22 naproxen 500 mg tablet 500 mg PO DIRECTED 05/27/22 05/27/22 sertraline 100 mg tablet 100 mg PO DAILY 05/27/22 05/27/22 Allergies Allergy/AdvReac Type Severity Reaction Status Date / Time Penicillins Allergy Mild Unknown Verified 08/29/22 22:18 Sulfa (Sulfonamide Allergy Mild Unknown Verified 08/29/22 22:18 Antibiotics) Review of Systems Review of Systems: CONSTITUTIONAL: Denies fever, chills, or sweats. EYES: Denies visual changes, redness, or discharge. ENT: Reports dental pain CARDIOVASCULAR: Denies chest pain, palpitations, or edema. RESPIRATORY: Denies cough or dyspnea. GASTROINTESTINAL: Denies abdominal pain, nausea, vomiting, or diarrhea. GENITOURINARY: Reports vaginal discharge and dysuria SKIN: Denies rash or itching. MUSCULOSKELETAL: Denies back pain, joint pain, or myalgia. NEUROLOGIC: Denies headache, numbness, dizziness, or weakness. PSYCHIATRIC: Denies anxiety or depression. ON LICENSE OF [facility] Past Medical History Medical History False labor Family History Family History Other Rheumatoid arthritis Mother Rheumatoid arthritis Social History Social History Smoking status: Former smoker Substance use: never Gender identity (if verbalized by the patient): Female Spiritual care concerns: No Exam Narrative: GENERAL: Well-appearing, well-nourished, no physical limitations, and in no acute distress. HEAD: Normocephalic, atraumatic. EYES: Conjunctivae normal, PERRLA and EOMI. ENT: Widespread periodontal disease fractured teeth and cavities no noted abscess. Tenderness to left upper molar left lower molar CHEST: Clear to auscultation. No respiratory distress. No wheezes rales or rhonchi. HEART: Regular rate and rhythm. No murmur heard. Normal peripheral pulses. ABDOMEN: Soft, nontender, nondistended, normal active bowel sounds. : Deferred BACK: No CVA tenderness; No cervical/thoracic/lumbar tenderness, step-offs, bony abnormality; FROM EXTREMITIES: Normal range of motion. No edema. No clubbing or cyanosis SKIN: Warm, dry, no rash. No noted wounds NEURO: No focal deficits. Alert and oriented x3. MAEW. CN's II-XI intact bilaterally, normal gait PSYCH: Cooperative. Normal mood and affect. Course Vital Signs Vital signs: Vital Signs Pulse Rate 80 08/29/22 22:14 Respiratory Rate 16 08/29/22 22:14 Blood Pressure 136/68 08/29/22 22:14 Pulse Oximetry 97 08/29/22 22:14 Oxygen Delivery Room Air 08/29/22 22:14 Pulse Rate 80 08/29/22 22:14 Respiratory Rate 16 08/29/22 22:14 Blood Pressure 136/68 08/29/22 22:14 Pulse Oximetry 97 08/29/22 22:14 Oxygen Delivery Room Air 08/29/22 22:14 MDM - Dental/Oral MDM Narrative Medical decision making narrative: Patient defers a pelvic exam at this time. States has been sexually active with a new partner but is using protection. Not concerned with STDs at this time.
== END 2022-08-30 00:09 | disposition home or self-care (01) ==
LOC: ANHED 23:55
PROVIDERS: Emergency Provider Nurse Practitioner Family; PCP Family Medicine
DX: K02.9 Dental caries, unspecified (principal); N89.8 Other specified noninflammatory disorders of vagina; Z87.891 Personal history of nicotine dependence
CPT/HCPCS: 81001; 81025; 87086; 87088; 87491; 87591; 87808; 99284

== ENCOUNTER 2023-01-02 16:50 | Emergency (ER) | payer BC, SELFPAY ==
[2023-01-02 16:59] VITALS: BP 116/58; PULSE 90; RESP 16; TEMP 37; O2SAT 100
--- NOTE | 2023-01-02 17:08 | ED.DENTAL ---
HPI - Dental/Oral General Chief complaint: Dental/Oral Stated complaint: Dental Pain Time Seen by Provider: 01/02/23 17:04 Source: patient and RN notes reviewed Mode of arrival: ambulatory Limitations: no limitations History of Present Illness HPI Narrative: Patient presents today with a 3-4 day history of right upper dental pain. Denies fever, shortness of breath, difficulty swallowing. Currently rates her pain 10/10. Has tried no [id number] medication for symptoms prior to arrival. States, ?it has been manageable. ? States she did call her dentist and has an appointment in 7 days. No recent antibiotic use. Related Data Home Medications Medication Instructions Recorded Confirmed bupropion HCl 150 mg 24 hr tablet, 150 mg PO DIRECTED 05/27/22 05/27/22 extended release sertraline 100 mg tablet 100 mg PO DAILY 05/27/22 05/27/22 Allergies Allergy/AdvReac Type Severity Reaction Status Date / Time Penicillins Allergy Mild Unknown Verified 01/02/23 16:55 Sulfa (Sulfonamide Allergy Mild Unknown Verified 01/02/23 16:55 Antibiotics) pumpkin Allergy Hives Verified 01/02/23 17:04 Review of Systems Review of Systems: CONSTITUTIONAL: Denies body aches, fever, chills, or sweats. EYES: Denies visual changes, redness, or discharge. ENT: Denies rhinorrhea, congestion, sore throat, or otalgia.+ dental pain CARDIOVASCULAR: Denies chest pain, palpitations, or edema. RESPIRATORY: Denies cough or dyspnea. GASTROINTESTINAL: Denies abdominal pain, nausea, vomiting, or diarrhea. GENITOURINARY: Denies dysuria or hematuria. SKIN: Denies rash, itching, or wounds. MUSCULOSKELETAL: Denies back pain, joint pain, or myalgia. NEUROLOGIC: Denies headache, numbness, tingling, or weakness. PSYCH: Denies depression or anxiety. [facility] Past Medical History Medical History False labor Family History Family History Other Rheumatoid arthritis Mother Rheumatoid arthritis Social History Social History Smoking status: Former smoker Substance use: never Gender identity (if verbalized by the patient): Female Spiritual care concerns: No Comments At time of signature, I have reviewed and agree with nursing past medical, surgical, social and family history unless otherwise noted. Please see nursing chart for further information. There is no relevant family history pertinent to the presenting complaint Exam Narrative: GENERAL: Well-appearing, well-nourished, and in no acute distress. HEAD: Normocephalic, atraumatic. EYES: EOMI. No redness or drainage. Conjunctivae normal. ENT: Mucous membranes pink and moist. Throat normal. Uvula midline. No facial swelling. Patient localizes pain above tooth 6. No obvious. Cool abscess noted. There is some erythema and scant edema of the gumline noted. Poor dentition throughout. NECK: Normal AROM. CHEST: No respiratory distress. EXTREMITIES: Normal range of motion. No edema. SKIN: Warm, dry, no rash. Capillary refill normal. Normal skin turgor. NEURO: No focal deficits. Alert and oriented x3. Gait steady. PSYCH: Normal affect. No signs of depression or anxiety. Course Course Level of Care: Express Care Visit Vital Signs Vital signs: Vital Signs Temperature 98.6 F 01/02/23 16:59 Pulse Rate 90 01/02/23 16:59 Respiratory Rate 16 01/02/23 16:59 Blood Pressure 116/58 L 01/02/23 16:59 Pulse Oximetry 100 01/02/23 16:59 Oxygen Delivery Room Air 01/02/23 16:59 Temperature 98.6 F 01/02/23 16:59 Pulse Rate 90 01/02/23 16:59 Respiratory Rate 16 01/02/23 16:59 Blood Pressure 116/58 L 01/02/23 16:59 Pulse Oximetry 100 01/02/23 16:59 Oxygen Delivery Room Air 01/02/23 16:59 Reviewed MDM - Dental/Oral MDM Narrative Medical decision making
== END 2023-01-02 17:12 | disposition home or self-care (01) ==
PROVIDERS: Emergency Provider Nurse Practitioner; PCP Family Medicine
DX: K04.7 Periapical abscess without sinus (principal); Z87.891 Personal history of nicotine dependence
CPT/HCPCS: 99213; G0463

== ENCOUNTER 2023-01-15 18:16 | Emergency (ER) | payer BC, SELFPAY ==
[2023-01-15 18:24] VITALS: BP 112/68; PULSE 83; RESP 16; TEMP 36.9; O2SAT 99
--- NOTE | 2023-01-15 18:51 | ED.GENADULT ---
HPI - General Adult General Chief complaint: Wound/Laceration Stated complaint: Thumb Nail Injury Time Seen by Provider: 01/15/23 18:51 Source: patient, RN notes reviewed and old records reviewed Mode of arrival: ambulatory Limitations: no limitations History of Present Illness HPI narrative: 22-year-old female presents to the [facility] with concerns after her right acrylic nail and real nail is pulling upwards. States that she was prying the chicken apart when her nail, came up. Bleeding is controlled. Occurred last night. Mild amount of swelling noted Onset (ago): day(s) (1) Related Data Home Medications Medication Instructions Recorded Confirmed bupropion HCl 150 mg 24 hr tablet, 150 mg PO DIRECTED 05/27/22 05/27/22 extended release sertraline 100 mg tablet 100 mg PO DAILY 05/27/22 05/27/22 Allergies Allergy/AdvReac Type Severity Reaction Status Date / Time Penicillins Allergy Mild Unknown Verified 01/15/23 18:27 Sulfa (Sulfonamide Allergy Mild Unknown Verified 01/15/23 18:27 Antibiotics) pumpkin Allergy Hives Verified 01/15/23 18:27 Review of Systems Review of Systems: All systems reviewed & are unremarkable except as noted in HPI and below Constitutional: Constitutional: Reports no additional constitutional complaints Eyes: Eyes: Reports no additional eye complaints ENT: Reports system reviewed and no additional complaints, except as documented Cardiovascular: Cardiovascular: Reports no additional cardiovascular complaints, Denies chest pain and Denies dyspnea Respiratory: Respiratory: Reports no additional respiratory complaints, Denies chest congestion, Denies cough and Denies dyspnea Gastrointestinal: Gastrointestinal: Reports no additional gastrointestinal complaints, Denies abdominal pain, Denies nausea and Denies vomiting Musculoskeletal: Musculoskeletal: Reports no additional musculoskeletal complaints Integumentary/Breasts: Skin/Breast: Reports as per HPI Neurologic: Reports system reviewed and no additional complaints, except as documented Psychiatric: Psychiatric: Reports no additional psychiatric complaints Allergic/Immunologic: Allergic/Immunologic: Reports no additional allergic/immunologic complaints PMF Past Medical History Medical History False labor Family History Family History Other Rheumatoid arthritis Mother Rheumatoid arthritis Social History Social History Smoking status: Former smoker Substance use: never Gender identity (if verbalized by the patient): Female Spiritual care concerns: No Comments At the time of my signature, I reviewed and agree with the nursing past medical, surgical, social, and family history. There is no relevant family history pertinent to the patient complaint. Exam Const: General: cooperative, healthy appearing, comfortable, no acute distress, well developed, alert and well nourished Nutritional Appearance: well nourished Orientation/consciousness: patient oriented x3 Limitations: no limitations HENMT: Head: normal to inspection Ears: hearing grossly normal bilaterally and external ears normal Face/Nose/Sinus: Normal external nose present, Normal nares present, Normal nasal mucous membranes and turbinates present and normal facial exam Face and sinus: normal facial exam Mouth: Yes lip normal and Yes moist mucous membranes Eyes: General: appearance normal, both eyes and all related structures Alignment and Position: alignment normal Periorbital: periorbital findings normal Conjunctivae: conjunctivae normal Pupils: Equal, round and reactive pupils present EOM: EOMs intact bilaterally Neck: Neck: normal visual inspection, full ROM, no lymphadenopathy and no meningeal signs Chest: Chest palpation & inspection: normal inspection of the chest Resp: E
== END 2023-01-15 19:04 | disposition home or self-care (01) ==
PROVIDERS: Emergency Provider Nurse Practitioner; PCP Family Medicine
DX: S61.101A Unspecified open wound of right thumb with damage to nail, initial encounter (principal); X58.XXXA Exposure to other specified factors, initial encounter; E03.9 Hypothyroidism, unspecified; E28.2 Polycystic ovarian syndrome
CPT/HCPCS: 99213; G0463

== ENCOUNTER 2023-02-25 15:19 | Emergency (ER) | payer OTHER, BC, SELFPAY ==
--- NOTE | ~2023-02-25 | XR_ITS ---
XR knee RT min 4V 02/25/2023 16:22 INDICATION: Right knee pain PROCEDURE: 4 views right knee COMPARISON: No prior studies for comparison. FINDINGS: Fracture, dislocation or subluxation is not identified. The soft tissues appear within norm al limits. No foreign bodies are identified. IMPRESSION: 1: NO ACUTE BONE OR JOINT ABNORMALITY IDENTIFIED. Reviewed, dictated and finalized at location []
[2023-02-25 15:57] VITALS: BP 123/67; PULSE 65; RESP 18; TEMP 37.2; O2SAT 100
--- NOTE | 2023-02-25 17:07 | ED.LOWEXIN ---
HPI - Extremity Injury (Lower) General Chief Complaint: Extremity Injury, Lower Stated Complaint: Right Knee Pain Time Seen by Provider: 02/25/23 17:08 Source: patient Mode of arrival: ambulatory Limitations: no limitations History of Present Illness HPI Narrative: 23-year-old female presented for complaint of right knee pain and abrasion after fall at work today. She states she fell about 2 ft after missing a stair and struck the knee on a metal step. Patient was unable to tolerate cleansing it prior to arrival. She attempted to continue to work but the pain worsened after walking on it. She denies swelling, decreased range of motion, numbness, tingling or weakness of the extremity. Has not taken anythign for pain. Related Data Home Medications Medication Instructions Recorded Confirmed bupropion HCl 150 mg 24 hr tablet, 150 mg PO DIRECTED 05/27/22 02/25/23 extended release sertraline 100 mg tablet 100 mg PO DAILY 05/27/22 02/25/23 Allergies Allergy/AdvReac Type Severity Reaction Status Date / Time Penicillins Allergy Mild Unknown Verified 01/15/23 18:27 Sulfa (Sulfonamide Allergy Mild Unknown Verified 01/15/23 18:27 Antibiotics) pumpkin Allergy Hives Verified 01/15/23 18:27 Review of Systems Review of Systems: CONSTITUTIONAL: Denies body aches, fever, chills EYES: Denies visual changes ENT: Denies rhinorrhea, congestion CARDIOVASCULAR: Denies chest pain, palpitations, or edema. RESPIRATORY: Denies cough or dyspnea. GASTROINTESTINAL: Denies abdominal pain, nausea, vomiting, or diarrhea. SKIN: Denies rash, itching, or wounds. MUSCULOSKELETAL: Reports right knee pain NEUROLOGIC: Denies headache, numbness, tingling, or weakness. All systems reviewed & are unremarkable except as noted in HPI and below PMFSH Past Medical History Medical History False labor Family History Family History Other Rheumatoid arthritis Mother Rheumatoid arthritis Social History Social History Smoking status: Former smoker Substance use: never Gender identity (if verbalized by the patient): Female Spiritual care concerns: No Comments At time of signature, I have reviewed and agree with nursing past medical, surgical, social and family history unless otherwise noted. Please see nursing chart for further information. There is no relevant family history pertinent to the presenting complaint Exam Narrative: GENERAL: Well-appearing, well-nourished, and in no acute distress. HEAD: Normocephalic, atraumatic. CHEST: Speaks in full sentences. No respiratory distress. HEART: Regular rate and rhythm. Normal and equal peripheral pulses. EXTREMITIES: Right knee with superficial linear abrasion approx 5cm; RLE has normal strength and sensation, normal range of motion. No swelling or ecchymosis on the knee, No point tenderness. No obvious deformity; alignment normal, pulse palpable and equal bilaterally, skin warm, dry, pink. Capillary refill less than 3 seconds. SKIN: Warm, dry, no rash. Scattered bruising, she reports r/t job NEURO: Alert and oriented x3. PSYCH: Normal mood and affect Course Course Emergency Course: Patient is aware of diagnosis, understands and agrees to treatment plan. Anticipatory guidance given. Patient agrees to follow-up as directed and is aware of reasons to seek care at the emergency department. Portions of this record may have been created with voice recognition software Level of Care: Express Care Visit Vital Signs Vital signs: Vital Signs Temperature 98.9 F 02/25/23 15:57 Pulse Rate 65 02/25/23 15:57 Respiratory Rate 18 02/25/23 15:57 Blood Pressure 123/67 02/25/23 15:57 Pulse Oximetry 100 02/25/23 15:57 Oxygen Delivery Room Air 02/25/23 15:57 Temperature 98.9 F 02/25/23
== END 2023-02-25 17:23 | disposition home or self-care (01) ==
PROVIDERS: Emergency Provider Nurse Practitioner Family; PCP Family Medicine
DX: S80.211A Abrasion, right knee, initial encounter (principal); W10.9XXA Fall (on) (from) unspecified stairs and steps, initial encounter; Y99.0 Civilian activity done for income or pay; Z87.891 Personal history of nicotine dependence
CPT/HCPCS: 73564; 99213; G0463

== ENCOUNTER 2023-07-15 10:43 | Emergency (ER) | payer BC, SELFPAY ==
--- NOTE | 2023-07-15 10:55 | ED.EAR ---
HPI - Ear Problem General Chief complaint: Ear Stated complaint: Right Ear Irritation Time Seen by Provider: 07/15/23 10:50 Source: patient Mode of arrival: ambulatory Limitations: no limitations History of Present Illness HPI Narrative: Patient is a 23-year-old female who presents with right ear pain for 3 days. Patient states she has frequent ear infections, last 1 being 4 5 months ago. Patient has tried Tylenol ibuprofen with no relief. Also reports mild congestion and mild sore throat. Denies any fever, chills, nausea, vomiting, diarrhea. MD Complaint: ear pain Related Data Home Medications Medication Instructions Recorded Confirmed bupropion HCl 150 mg 24 hr tablet, 150 mg PO DIRECTED 05/27/22 07/15/23 extended release sertraline 100 mg tablet 100 mg PO DAILY 05/27/22 07/15/23 Allergies Allergy/AdvReac Type Severity Reaction Status Date / Time Penicillins Allergy Mild Unknown Verified 07/15/23 11:20 Sulfa (Sulfonamide Allergy Mild Unknown Verified 07/15/23 11:20 Antibiotics) pumpkin Allergy Hives Verified 07/15/23 11:20 Review of Systems Review of Systems: All systems reviewed & are unremarkable except as noted in HPI and below Constitutional: Constitutional: Denies body ache(s), Denies chills, Denies fever(s), Denies headache(s) and Denies malaise Eyes: Eyes: Denies blurry vision, Denies eye discharge and Denies irritation ENT: Reports otalgia, Denies headache(s), Denies nasal congestion, Denies nasal discharge and Denies sore throat Cardiovascular: Cardiovascular: Denies chest pain, Denies edema, Denies palpitations and Denies dyspnea on exertion Respiratory: Respiratory: Denies cough and Denies dyspnea on exertion Gastrointestinal: Gastrointestinal: Denies abdominal pain, Denies diarrhea, Denies nausea and Denies vomiting Musculoskeletal: Musculoskeletal: Denies back pain, Denies arthralgias and Denies muscle weakness Integumentary/Breasts: Skin/Breast: Denies pruritus and Denies rash Neurologic: Denies headache(s) Psychiatric: Psychiatric: Reports no additional psychiatric complaints Endocrine: Endocrine: Denies palpitations PMFSH Past Medical History Medical History False labor Family History Family History Other Rheumatoid arthritis Mother Rheumatoid arthritis Social History Social History Smoking status: Former smoker Substance use: never Gender identity (if verbalized by the patient): Female Spiritual care concerns: No Comments At time of signature, agree with nursing past medical, surgical, social and family history. There is no relevant family history pertinent to the presenting complaint? Exam Const: General: cooperative, healthy appearing, no acute distress and well nourished Nutritional Appearance: well nourished Orientation/consciousness: patient oriented x3 Limitations: no limitations HENMT: Head: normal to inspection, normocephalic and atraumatic Ears: hearing grossly normal bilaterally, no periauricular adenopathy, Abnormal EAC present erythema on the right, edema on the right and EAC tenderness on the right and TM abnormal bulging on the right and erythematous on the right Face/Nose/Sinus: Normal external nose present, Normal nares present, Normal nasal mucous membranes and turbinates present, No nasal discharge present, normal facial exam and sinuses nontender Face and sinus: normal facial exam and sinuses nontender Mouth: Yes Normal oral and palatal mucosa present, Yes lip normal, Yes tongue normal and Yes moist mucous membranes Throat: posterior oropharynx normal, tonsils normal and uvula midline Eyes: General: appearance normal, both eyes and all related structures Alignment and Position: alignment normal and position normal Eyelids: eyelids normal Pupils: Equal, round and react
[2023-07-15 11:06] VITALS: BP 128/74; PULSE 70; RESP 16; TEMP 36.9; O2SAT 100
== END 2023-07-15 11:48 | disposition home or self-care (01) ==
PROVIDERS: Emergency Provider Nurse Practitioner Family; PCP Family Medicine
DX: H60.311 Diffuse otitis externa, right ear (principal); H66.001 Acute suppurative otitis media without spontaneous rupture of ear drum, right ear; E03.9 Hypothyroidism, unspecified; E28.2 Polycystic ovarian syndrome; F41.9 Anxiety disorder, unspecified; F32.A Depression, unspecified
CPT/HCPCS: 99213; G0463

== ENCOUNTER 2023-10-27 15:51 | Emergency (ER) | payer BC, SELFPAY ==
[2023-10-27 15:57] VITALS: BP 145/54; PULSE 78; RESP 16; TEMP 37.4; O2SAT 100
--- NOTE | 2023-10-27 16:07 | ED.DENTAL ---
HPI - Dental/Oral General Chief complaint: Dental/Oral Stated complaint: Dental Pain Time Seen by Provider: 10/27/23 16:00 Source: patient Mode of arrival: ambulatory Limitations: no limitations History of Present Illness HPI Narrative: 23-year-old female presents concern for right upper dental pain and facial swelling. Reports symptoms worsen over the last 3 days. She denies problems swallowing, fever, headache. Reports chronic dental problems, she has an appointment with a dentist in December. MD Complaint: tooth pain Related Data Home Medications Medication Instructions Recorded Confirmed bupropion HCl 150 mg 24 hr tablet, 150 mg PO DIRECTED 05/27/22 10/27/23 extended release sertraline 100 mg tablet 100 mg PO DAILY 05/27/22 10/27/23 Allergies Allergy/AdvReac Type Severity Reaction Status Date / Time Penicillins Allergy Mild Unknown Verified 10/27/23 15:53 Sulfa (Sulfonamide Allergy Mild Unknown Verified 10/27/23 15:53 Antibiotics) pumpkin Allergy Hives Verified 10/27/23 15:53 Review of Systems Review of Systems: CONSTITUTIONAL: Denies malaise, chills, sweats, or fever. EYES: Denies visual changes ENT: Denies rhinorrhea, congestion, sinus pain, otalgia or sore throat. Reports right upper dental pain CARDIOVASCULAR: Denies chest pain, palpitations RESPIRATORY: Denies cough or dyspnea. SKIN: Denies rash or itching. MUSCULOSKELETAL: Denies myalgia. NEUROLOGIC: Denies numbness, weakness, or headache. All systems reviewed & are unremarkable except as noted in HPI and below PMFSH Past Medical History Medical History False labor Family History Family History Other Rheumatoid arthritis Mother Rheumatoid arthritis Social History Social History Smoking status: Former smoker Substance use: never Gender identity (if verbalized by the patient): Female Spiritual care concerns: No Comments At time of signature, agree with nursing past medical, surgical, social and family history. There is no relevant family history pertinent to the presenting complaint Exam Narrative: GENERAL: Well-appearing, well-nourished, and in no acute distress. HEAD: Normocephalic, atraumatic. EYES: PERRLA, sclera clear ENT: Nares clear, turbinates pink, no rhinorrhea or epistaxis. Mucous membranes moist. TM pearly davis with sharp light reflex bilaterally; no tragal tenderness. Oropharynx without erythema or lesions. Tonsils not enlarged and without exudate. Multiple caries, right cheek swelling noted NECK: Supple. No lymphadenopathy. CHEST: No respiratory distress. Speaks in full sentences. HEART: Regular rate and rhythm. SKIN: Warm, dry, no visible rash. NEURO: Alert and oriented x3. PSYCH: Normal mood and affect Course Course Emergency Course: Patient is aware of diagnosis, understands and agrees to treatment plan. Anticipatory guidance given. Patient agrees to follow-up as directed and is aware of reasons to seek care at the emergency department. Portions of this record may have been created with voice recognition software Level of Care: Express Care Visit Vital Signs Vital signs: Vital Signs Temperature 99.3 F 10/27/23 15:57 Pulse Rate 78 10/27/23 15:57 Respiratory Rate 16 10/27/23 15:57 Blood Pressure 145/54 H 10/27/23 15:57 Pulse Oximetry 100 10/27/23 15:57 Oxygen Delivery Room Air 10/27/23 15:57 Temperature 99.3 F 10/27/23 15:57 Pulse Rate 78 10/27/23 15:57 Respiratory Rate 16 10/27/23 15:57 Blood Pressure 145/54 H 10/27/23 15:57 Pulse Oximetry 100 10/27/23 15:57 Oxygen Delivery Room Air 10/27/23 15:57 Reviewed. MDM - Dental/Oral MDM Narrative Medical decision making narrative: Patients pain and complaint coupled with physical findings are consistant with dentalgia.
== END 2023-10-27 16:05 | disposition home or self-care (01) ==
LOC: EXPCOLL 15:53
PROVIDERS: Emergency Provider Nurse Practitioner; PCP Family Medicine
DX: K04.7 Periapical abscess without sinus (principal); Z79.899 Other long term (current) drug therapy; Z87.891 Personal history of nicotine dependence
CPT/HCPCS: 99213; G0463

== ENCOUNTER 2023-10-28 20:31 | Emergency (ER) | payer BC, SELFPAY ==
[2023-10-28 20:40] VITALS: BP 144/78; PULSE 102; RESP 14; TEMP 37.1; O2SAT 100
--- NOTE | 2023-10-29 01:03 | ED.SKABFB ---
HPI - Skin/Abscess/Foreign Bdy General Chief complaint: Skin/Abscess/Foreign Body Stated complaint: gumline abscess Time Seen by Provider: 10/29/23 00:16 History of Present Illness HPI narrative: 23-year-old female with dental caries reports for evaluation for right maxillary tooth pain x3 days with associated facial swelling. Patient was seen at urgent care on 10/27 and was diagnosed with a dental abscess and prescribed clindamycin. Patient states she has taken 2 doses of the clindamycin and came to the ER because she noticed an area that ?popped?. She denies difficulty speaking, swallowing, trismus. No vomiting. She does states she had a fever at home today and took ibuprofen at 7:00 p.m.. She has not had a fever since. States she does not have an appointment her dentist until the summer. Related Data Home Medications Medication Instructions Recorded Confirmed bupropion HCl 150 mg 24 hr tablet, 150 mg PO DIRECTED 05/27/22 10/27/23 extended release sertraline 100 mg tablet 100 mg PO DAILY 05/27/22 10/27/23 Allergies Allergy/AdvReac Type Severity Reaction Status Date / Time Penicillins Allergy Mild Unknown Verified 10/27/23 15:53 Sulfa (Sulfonamide Allergy Mild Unknown Verified 10/27/23 15:53 Antibiotics) pumpkin Allergy Hives Verified 10/27/23 15:53 Review of Systems Review of Systems: CONSTITUTIONAL: Denies fever, chills, or sweats. EYES: Denies visual changes, redness, or discharge. ENT: See HPI CARDIOVASCULAR: Denies chest pain, palpitations, or edema. RESPIRATORY: Denies cough or dyspnea. GASTROINTESTINAL: Denies abdominal pain, nausea, vomiting, or diarrhea. GENITOURINARY: Denies dysuria or hematuria. SKIN: Denies rash or itching. MUSCULOSKELETAL: Denies back pain, joint pain, or myalgia. NEUROLOGIC: Denies headache, numbness, or weakness. PSYCHIATRIC: Denies anxiety or depression. [facility] Past Medical History Medical History False labor Family History Family History Other Rheumatoid arthritis Mother Rheumatoid arthritis Social History Social History (Reviewed 10/29/23 @ 01:04 by JODY Brennan Smoking status: Former smoker Substance use: never Gender identity (if verbalized by the patient): Female Spiritual care concerns: No Exam Narrative: GENERAL: Well-appearing, well-nourished, and in no acute distress. HEAD: Normocephalic, atraumatic. EYES: PERRLA and EOMI. ENT: Nares clear, no rhinorrhea or epistaxis. Mucous membranes moist. Dental caries throughout. Periapical abscess above tooth #5 that is actively draining purulent fluid. Facial edema with induration over the cheek extending just beneath the orbit. No pain with EOMs, no associated cellulitis. No areas of fluctuation. No submandibular edema, no trismus. Patient is tolerating her secretions. Floor mouth is soft without crepitus. No airway compromise. Posterior pharynx is unremarkable, uvula is midline. No tonsillar exudates or hypertrophy. Bilateral TMs are davis nonbulging with normal canals. NECK: Supple. CHEST: Clear to auscultation. No respiratory distress. HEART: Regular rate and rhythm. No murmur heard. Normal peripheral pulses. EXTREMITIES: Normal range of motion. No edema. SKIN: Warm, dry, no rash. NEURO: No focal deficits. Alert and oriented x3 Course Vital Signs Vital signs: Vital Signs Temperature 98.8 F 10/28/23 20:40 Pulse Rate 102 H 10/28/23 20:40 Respiratory Rate 14 10/28/23 20:40 Blood Pressure 144/78 H 10/28/23 20:40 Pulse Oximetry 100 10/28/23 20:40 Oxygen Delivery Room Air 10/28/23 20:40 Temperature 98.2 F 10/29/23 01:32 Pulse Rate 99 10/29/23 01:32 Respiratory Rate 16 10/29/23 01:32 Blood Pressure 138/85 10/29/23 01:32 Pulse Oximetry 99 10/29/23 01:32 Oxygen Delivery Room Air 10/28/23 20:40 MDM - S
[2023-10-29 01:32] VITALS: BP 138/85; PULSE 99; RESP 16; TEMP 36.8; O2SAT 99
== END 2023-10-29 01:33 | disposition home or self-care (01) ==
PROVIDERS: Emergency Provider Physician Assistant; PCP Family Medicine
DX: K04.7 Periapical abscess without sinus (principal); K02.9 Dental caries, unspecified; Z87.891 Personal history of nicotine dependence
CPT/HCPCS: 99281

== ENCOUNTER 2023-11-15 13:36 | Emergency (ER) | payer BC, SELFPAY ==
--- NOTE | ~2023-11-15 | XR_ITS ---
EXAMINATION: XR hip RT min 2V DATE: 11/15/2023 14:20 INDICATION: Lateral right hip pain TECHNIQUE: Anteroposterior, frog leg and cross-table lateral views of the right hip were obtained. COMPARISON: None. FINDINGS: Mild lumbar levocurvature. Alignment is otherwise normal.. No fracture or suspected avascular necrosi s. 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 There is decreased anterosuperior femoral head/neck offset. Mild osteoarth ritis at the right hip with mild nonuniform anterior and superolateral predominant nonuniform joint s pace narrowing and small marginal osteophytes along the superolateral femoral head. Right sacroiliac joint is normal. Soft tissues are unremarkable. IMPRESSION: 1. Mild osteoarthritis of the right hip. No acute osseous abnormality. 2. 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 Reviewed, dictated and finalized at location A. [facility] IMPRESSION: 1. Mild osteoarthritis of the right hip. No acute osseous abnormality. 2. 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
[2023-11-15 13:54] VITALS: BP 135/79; PULSE 89; RESP 16; TEMP 37; O2SAT 100
--- NOTE | 2023-11-15 14:08 | ED.URI ---
HPI - URI/Sore Throat General Chief Complaint: Back Pain/Injury Stated Complaint: back pain, scratchy throat,strep exposure Time Seen by Provider: 11/15/23 14:00 Source: patient Mode of arrival: ambulatory Limitations: no limitations History of Present Illness HPI Narrative: Ramon is a 23-year-old female patient presenting to the clinic today with complaints of right sided lateral hip pain and scratchy throat. She reports she has history of scoliosis and has chronic back pain however she has been sleeping on a couch for the last 1.5 weeks and is having pain in the right hip. She reports that ibuprofen that she normally takes for her pain is not alleviating the pain in her right hip. She is also reporting a scratchy throat. States that her child just got over strep throat. MD elicited complaint: sore throat and other (Right hip pain) Related Data Home Medications Medication Instructions Recorded Confirmed bupropion HCl 150 mg 24 hr tablet, 150 mg PO DIRECTED 05/27/22 11/15/23 extended release sertraline 100 mg tablet 100 mg PO DAILY 05/27/22 11/15/23 Allergies Allergy/AdvReac Type Severity Reaction Status Date / Time Penicillins Allergy Mild Unknown Verified 11/15/23 14:12 Sulfa (Sulfonamide Allergy Mild Unknown Verified 11/15/23 14:12 Antibiotics) pumpkin Allergy Hives Verified 11/15/23 14:12 Review of Systems Review of Systems: Pertinent positives per HPI. Patient denies any fever, chills, rash, headache, visual changes, dizziness, cough, shortness of breath, chest pain, palpitations, nausea, vomiting, diarrhea, constipation, abdominal pain, or any urinary issues. PMFSH Past Medical History Medical History False labor Family History Family History Other Rheumatoid arthritis Mother Rheumatoid arthritis Social History Social History Smoking status: Former smoker Substance use: never Gender identity (if verbalized by the patient): Female Spiritual care concerns: No Comments At the time of my signature, I reviewed and agree with the nursing past medical, surgical, social, and family history. There is no relevant family history pertinent to the patient complaint. Exam Narrative: General: Well-developed, well nourished, in no apparent distress Head: Normocephalic, atraumatic Eyes: Pupils equally round and reactive to light bilaterally, EOM intact, sclera and conjunctive clear, no discharge, lids normal Ears: TMs intact and clear, ear canals clear, no drainage, grossly hearing normal. Nose: Nares patent, no discharge, no inflammation, no sinus tenderness. Mouth: Oral pharynx red without lesions or masses, good dentition, MMM. Neck: Supple, trachea midline, no enlargement of anterior or posterior cervical nodes, no thyroid masses or goiter palpable. Cardio: Regular rate and rhythm, s1 and s2 normal, no murmur appreciated. Resp: Clear to auscultation bilaterally, no rhonchi, rales, wheezing or rubs Musculoskeletal: No deformity, tender to palpation over the right lateral hip, pain with flexion of the hip over the right lateral hip as well as internal and external rotation, grossly normal range of motion, muscle strength strong and equal, peripheral pulse strong, no edema, no cyanosis, normal gait and station Course Course Emergency Course: Portions of this record may have been created with voice recognition software. Level of Care: Express Care Visit Vital Signs Vital signs: Vital Signs Temperature 37.0 C 11/15/23 13:54 Pulse Rate 89 11/15/23 13:54 Respiratory Rate 16 11/15/23 13:54 Blood Pressure 135/79 11/15/23 13:54 Pulse Oximetry 100 11/15/23 13:54 Oxygen Delivery Room Air 11/15/23 13:54 Temperature 37.0 C 11/15/23 13:54 Pulse Rate 89 11/15/23 13:54 Respira
== END 2023-11-15 15:00 | disposition home or self-care (01) ==
PROVIDERS: Emergency Provider Nurse Practitioner Family; PCP Family Medicine
DX: M25.551 Pain in right hip (principal); J02.9 Acute pharyngitis, unspecified; Z79.899 Other long term (current) drug therapy; Z87.891 Personal history of nicotine dependence
CPT/HCPCS: 73502; 81003; 87081; 87880; 99213; G0463

== ENCOUNTER 2024-06-02 18:03 | Emergency (ER) | payer BC, SELFPAY ==
[2024-06-02 19:16] VITALS: BP 125/73; PULSE 66; RESP 14; TEMP 36.9; O2SAT 100
[2024-06-02 19:54] LABS: Basophils Percent Auto 0.3 % (0.2-1.2); Eosinophils Absolute Auto 0.2 K/mm3 (0-0.3); Eosinophils Percent Auto 1.7 % (0-4.4); Hematocrit 37.5 % (37.0-47.0); Hemoglobin 12.7 g/dL (12.0-15.0); Immature Granulocyte Absolute 0.02 K/mm3 (0.00-0.031); Immature Granulocyte Percent A 0.2 % (0-0.5); Lymphocytes Absolute Auto 1.62 K/mm3 (0.9-3.2); Lymphocytes Percent Auto 18.6 % (18.3-44.2); Mean Corpuscular HGB Conc 33.9 g/dl (32-36); Mean Corpuscular Volume 85.6 fl (80-100); Mean Platelet Volume 9.8 fl (7.4-10.4); Monocytes Absolute Auto 0.7 K/mm3 (0.1-0.6); Monocytes Percent Auto 7.4 % (2.6-8.5); Neutrophils Absolute Auto 6.3 K/mm3 (1.3-6.7); Neutrophils Percent Auto 71.8 % (45.5-73.1); Platelet Count Result 295 k/mm3 (150-375); Red Blood Count 4.38 M/mm3 (4.2-5.4); White Blood Count 8.7 K/mm3 (4.5-10.0)
[2024-06-02 19:59] LABS: Add Urine Microscopic? YES; Appearance Urine Cloudy (Clear); Bacteria Urine 1+ /hpf; Bilirubin Urine Negative (Negative); Blood Urine Negative (Negative); Color Urine Yellow (Yellow); Glucose Urine UA Negative (Negative); Ketones Urine Negative (Negative); Leukocyte Esterase Ur 1+ LEU/UL (Negative); Need Manual Microscopic Reviewed; Nitrate Urine Negative (Negative); Non Pathogenic Casts 0-2; Protein Urine Negative (Negative); RBC Urine 0-2 /hpf (0-2); Specific Grav Ur 1.019 (1.001-1.035); Squamous Epithelial Cell Urine Occasional /hpf (Few); Urobilinogen Urine 0.2 mg/dL (<2.0); WBC Urine 0-5 /hpf (0-3); pH Urine 7.5 (5.0-9.0)
[2024-06-02 20:04] LABS: BEDSIDEPREGUCG Negative (Negative)
[2024-06-02 20:12] LABS: Potassium 3.5 mmol/L (3.4-5.0); Sodium 138 mmol/L (137-145)
[2024-06-02 20:13] LABS: Alanine Aminotransferase 10 U/L (6-35); Albumin Level 4.2 g/dL (3.5-5.1); Alkaline Phosphatase 40 U/L (38-126); Anion Gap 7 mmol/L (4-12); Aspartate Amino Transferase 19 U/L (14-36); Bilirubin,Total 0.9 mg/dL (0.2-1.3); Blood Urea Nitrogen 10 mg/dL (7-17); Calcium 9.1 mg/dL (8.4-10.2); Carbon Dioxide 28 mmol/L (22-30); Chloride 103 mmol/L (98-107); Estimated CRCL calculation 122 ml/min; Estimated Glomerular Filt Rate > 60; Glucose 107 mg/dL (65-110)
[2024-06-02 20:18] LABS: Amphetamine Screen Urine Negative (Negative); Barbiturate Screen Urine Negative (Negative); Benzodiazepines Screen Urine Negative (Negative); Cannabinoid Screen Urine Positive (Negative); Cocaine Screen Urine Positive (Negative); Methadone Screen Urine Negative (Negative); Opiate Screen Urine Negative (Negative); Phencyclidine Screen Urine Negative (Negative)
[2024-06-02 20:18] LABS: Ethanol < 10 mg/dL (<10)
--- NOTE | 2024-06-02 20:23 | ED.GENADULT ---
HPI - General Adult General Chief complaint: Psychiatric Symptoms Stated complaint: mental health issues Time Seen by Provider: 06/02/24 19:03 History of Present Illness HPI narrative: Patient is a 24-year-old female who presents to the emergency department disease evening complaining of hearing voices. Patient states that she has been hearing 2 distinct voices in her head since she was 12 years old but she has never really told anybody about this because she was not ready to admit that she may have some mental illness such as schizophrenia. Patient states that the voices have never told her to hurt herself or anybody else and she is currently denying any suicidal or homicidal ideations and denies any previous suicide attempt. Patient states that the voices tend to just bring her down and are constantly telling her all the negative things that people around her are thinking of her. Patient states that she has seen a psychiatrist and therapist in the past that her parents have sent her to for other reasons such as anxiety and depression but she has not found the many helpful because she states that her parents always picked oriental orthodox people and she feels as though she cannot relate to them. Patient states that the symptoms have been getting worse and worse throughout the past few years and she finally decided to come and help. She is currently denying any additional symptoms or concerns at this time. Related Data Home Medications Medication Instructions Recorded Confirmed sertraline 100 mg tablet 100 mg PO DAILY 05/27/22 11/15/23 Allergies Allergy/AdvReac Type Severity Reaction Status Date / Time Penicillins Allergy Mild Unknown Verified 02/24/24 13:07 Sulfa (Sulfonamide Allergy Mild Unknown Verified 02/24/24 13:07 Antibiotics) pumpkin Allergy Hives Verified 02/24/24 13:07 Review of Systems Review of Systems: All systems are reviewed and are negative unless stated otherwise in the HPI. [facility] Past Medical History Medical History Allergic rhinitis Anxiety Depression Migraine headache Family History Family History Other No problems noted. Mother Rheumatoid arthritis Hypertension Hypothyroidism GERD with esophagitis Father ADD (attention deficit disorder) GERD (gastroesophageal reflux disease) Anxiety Grandparent Bipolar disorder Hypothyroidism Hypertension Depression Diabetes mellitus Sleep apnea Social History Social History Smoking status: Former smoker Tobacco type: e-cigarettes/vaping Alcohol intake: current Substance use: never Substance use type: marijuana Do You Feel Safe in your Home?: Yes Lack of Transportation: No Lack of Food: Never True Current Housing: I Have Housing Concerned About Future Housing: No Difficulty Paying Gas/Electric Bills: No Difficulty Paying for Meds: No Currently Unemployed: No Education: High School Diploma/GED Difficulty w/ Childcare or Family Care: No Living arrangements: with family Occupation/Education: occupation Gender identity (if verbalized by the patient): Female Sexual Orientation (if Verbalized by the Patient): Straight or Heterosexual Spiritual care concerns: No Exam Narrative: General: Alert, awake, afebrile, in no acute distress. HEENT: PERRL, no rhinorrhea, no post nasal drip, oropharynx clear. Cardiovascular: Regular rate and rhythm, no murmurs, rubs or gallops, no peripheral edema. Respiratory: Clear to auscultation bilaterally, no tachypnea, no wheezing, no rhonchi, no rubs, no respiratory distress. Abdomen: Soft, nontender, nondistended, no rebound, no guarding, no peritoneal signs. Musculoskeletal: No joint swelling or deformity, normal muscle tone. Skin: No rashes or petechia, no signs of infection. Psychiatric: Alert
[2024-06-02 20:31] LABS: Influenza A QL RT-PCR Negative (Negative); Influenza B QL RT-PCR Negative (Negative); SARS-CoV-2 RNA PCR Negative (Negative)
--- NOTE | 2024-06-02 21:07 | ECG_ITS ---
Test Date: 2024-06-02 21:34:40 Measurements Intervals [place] Rate: 60 P: 61 PA: 160 QRS: 51 QRSD: 97 T: 47 QT: 407 QTc: 407 Interpretive Statements SINUS RHYTHM WITH SINUS ARRHYTHMIA NORMAL ECG No previous ECG available for comparison Electronically Signed On 06-03-2024 06:39:36 CDT by Ulisses Roberts D.O.
[2024-06-02 21:35] LABS: Free T4 Free Thyroxine 0.96 ng/mL (0.78-2.19)
[2024-06-03 00:02] VITALS: BP 120/66; PULSE 68; RESP 14; O2SAT 100
== END 2024-06-03 00:03 | disposition home or self-care (01) ==
PROVIDERS: Student in an Organized Health Care Education/Training Program; Emergency Provider Emergency Medicine; PCP Family Medicine
DX: R44.0 Auditory hallucinations (principal); Z20.822 Contact with and (suspected) exposure to COVID-19; F17.290 Nicotine dependence, other tobacco product, uncomplicated; F41.9 Anxiety disorder, unspecified; F32.A Depression, unspecified; R82.998 Other abnormal findings in urine
CPT/HCPCS: 36415; 80053; 80307; 81001; 81025; 84439; 84443; 85025; 87086; 87088; 87636; 93005; 99284

== ENCOUNTER 2025-01-28 22:03 | Emergency (ER) | payer BC, OTHER, SELFPAY ==
[2025-01-28 22:05] VITALS: BP 124/65; PULSE 99; RESP 15; TEMP 36; O2SAT 99
--- OUTSIDE RECORDS SUMMARY | 2025-01-28 22:06 | XMS_ITS | Clinical Summary ---
Author Organization [facility] Address [address] [place] [address] Care Team Providers Care Director Of Video Analytics Name Role Phone No, Physician Primary Care Provider [phone] Allergies Active Allergy Reactions Criticality Noted Date Comments Penicillins Anaphylaxis,Hives High 04/07/2019 Sulfa (Sulfonamide Antibiotics) Anaphylaxis,Hives High 04/07/2019 Medications vitamin ferrous fumarate-folic () 28 mg iron- 800 mcg tablet Take 1 tablet by mouth daily Active ondansetron ODT (ZOFRAN-ODT) 4 mg disintegrating tablet Take 1 tablet (4 mg total) by mouth every 8 (eight) hours as needed for nausea or vomiting 20 tablet 1 5 Active acetaminophen-code ine (TYLENOL with CODEINE #3) 300-30 mg per tablet Take 1 tablet by mouth every 4 (four) hours as needed for pain 5 Active ibuprofen (ADVIL,MOTRIN) 800 mg tablet 5 Active metoclopramide (REGLAN) 10 mg tabletIndications: Encounter for supervision of normal in first trimester, unspecified Take 1 tablet (10 mg total) by mouth 4 (four) times a day 360 tablet 3 5 Active escitalopram (LEXAPRO) 10 mg tabletIndications: Encounter for supervision of normal in first trimester, unspecified ,Anxiety and depression Take 1 tablet (10 mg total) by mouth daily 30 tablet 5 5 05/17/20 25 Active hydrOXYzine (ATARAX) 25 mg tabletIndications: anxiety Take 1 tablet (25 mg total) by mouth 3 (three) times a day as needed for anxiety 90 tablet 3 5 11/19/19 26 Active butalbital-acetami nophen-caffeine (ESGIC) 50-325-40 mg per tabletIndications: Third trimester ,Pregnanc y headache in second trimester Take 1 tablet by mouth every 4 (four) hours as needed for headaches 5 tablet Active Active Problems Problem Noted Date Diagnosed Date Supervision of other normal , antepartu m 10/19/2024 History of drug abuse 10/19/2024 Estimated Date of Delivery Comme nts Yes 04/26/2025 Encounters Date Type Department Care Team Description 01/07/2025 1:45 PM CDT Office Visit [facility] Obstetrical Gynecology [address] [place] [phone] Johanny Wolf CNM Third trimester (Primary Dx); headache in second trimester 01/06/2025 1:24 PM CDT - 01/06/2025 4:15 PM CDT Emergency [facility] OB Emergency Department [address] [place] [address] David Tadeo MD Headache in , antepartum, second trimester (Primary Dx); 24 weeks gestation of Discharge Disposition: Discharge to home or self care 12/09/2024 10:45 AM CDT Office Visit [facility] Obstetrical Gynecology [address] [place] [phone] Montana Zaldivar MD Encounter for related examination in second trimester (Primary Dx) 12/09/2024 10:00 AM CDT Clinical Support [facility] Obstetrical Gynecology [address] [place] [phone] Encounter for supervision of other normal in second trimester (Primary Dx); hydronephrosis during , antepartum, single or unspecified fetus 12/09/2024 Telephone [facility] Obstetrical Gynecology [address] [place] [phone] Mary Vega MD 11/18/2024 10:15 AM CDT Office Visit [facility] Obstetrical Gynecology [address] [place] [address] [address] [place] [phone] Johanny Wolf CNM Encounter for supervision of normal in first trimester, unspecified (Primary Dx); Anxiety and depression 11/06/2024 Orders Only [facility] Obstetrical Gynecology [address] [place] [address] [address] [place] [phone] Ivett Benjamin CNM from Last 3 Months Surgical History Surgery Date Site/Laterality Comments DENTAL SURGERY Medical History Medical History Date Comments Anxiety Depression PCOS (polycystic ovarian syndrome) Asthma Family History Medical History Relation Name Comments Hypertension Maternal Grandmother Breast cancer Paternal Grandmother Colon cancer Neg Hx Ovarian cancer Neg Hx Uterine cancer Neg Hx Relation Name Status Comments Maternal Grandmother Paternal Grandmother Social History Tobacco Use Types Packs/Day Years Used Date Smoking Tobacco: Former Cigarettes Tobacco Cessation:Counseling Given: Not Answered [place] Depression Scale Answer Date Recorded [place] Depression Scale Total 18 11/18/2024 The thought of harming myself has occurred to me . Never 11/18/2024 Estimated Date of Delivery Comme nts Yes 04/26/2025 Sex and Gender Information Value Date Recorded Sex Assigned at Not on file Legal Sex Female 12:46 AM ORTHOPEDIC PHYSICIAN ASSISTANT Gender Identity Not on file Sexual Orientation Not on file Obstetrics History Para Term AB IAB SAB Ectopic Multiple Livin g Live Births 5 2 2 2 2 2 2 Date Outcome GA Total Labor Labor/2nd/3rd Weight Sex Type Anes PTL Jarvis A1 A5 Name Clin 2016 SAB 017 Term 39w 4d 2.977 kg (6 lb 9 oz) F Vag-S pont Epidur al N Livin g Delivery Location:[facility] 021 Term 39w 1d 3.714 kg (8 lb 3 oz) F Vag-S pont Epidur al N Livin g Complications:None Delivery Location:[place] [address] [facility] Current Summary Episode Dates Number of Fetuses Estimated Date of Delivery 10/19/2024 - Present (01/28/2025) 1 04/26/2025 (set by Radha Hidalgo RN on 10/19/2024 based on Alternate TICO Entry) Dating Summary Based On TICO GA Diff Last Menstrual Period (LMP Unknown) Ultrasound on 10/19/2024 04/20/2025 +6d GA:13w6d Ultrasound on 09/21/2024 04/26/2025 Same GA:9w0d Alternate TICO Entry 04/26/2025 Working Overview and Plan :Keller sex:Female Support person:Carlos Eduardo Delivery Plans Planned delivery method:Vaginal Planned delivery location:[facility] Planned anesthesia:Epidural Acceptable blood products:All Overview Surveillance of EDC base on US from [place] A+/Immune/HIV and Hep B neg, RPR NR Genetics: low risk Anatomy: 20 weeks GCT: 3hr!! 3rd trim CBC/HIV/RPR Tdap: 27+ weeks GBS: 36 weeks, or sooner if early delivery indicated COVID Vaccine: declined Social Barriers: none Mode of feeding: Method of contraception: Delivery Planning: TBD Obesity: early glucose 144, 3 hr passed Depression/ anxiety: EPDS at NOB 9 H/o drug abuse: last used 5-6 years ago Vitals Pregravid Weight Height TWG (As of 01/28/2025) Pregrav id BMI 89.8 kg (198 lb) 165.1 cm (5' 5 ) 11.3 kg (25 lb) 32.9 5 Notes Progress Notes - Office Visi t - 01/07/2025 - GA:24w3d 01/07/2025 - 24w3d - Johanny Wolf CNM Return OB Visit Avril Fowler is a 24 y.o. at 24w3d Pt reports persistent headache for 3 days. Was seen in [facility] yesterday after having an elevated BP at home 144/70 - normal labs and BPs there. Received IV reglan and benadryl that provided some relief. Tylenol has not been working Denies contractions, leaking of fluid and vaginal bleeding Endorses good movements Objective BP 132/60 Ht 165.1 cm (5' 5 ) Wt 223 lb (101.2 kg) LMP (LMP Unknown) BMI 37.11 kg/m TW lb (11.3 kg) FHT 143 Assessment and Plan -- reviewed pre eclampsia precautions -- discussed related headaches - rx for short supply Fioricet provided, recommend magnesium, B6 and PO Reglan/benadryl combination. Reviewed precautions -- discussed 3T labs for next visit -- Reviewed PTL precautions, FKCs and when to present to [facility] Surveillance of [place] US Labs: A+/Immune/-/- NR/NR Genetics: LR NIPT Anatomy: EFW 46%, anatomy complete, right renal pelvis 0.49 cm - repeat at 32 weeks Placenta: Posterior GCT: ordered 3T labs: ordered Tdap: 27+ weeks GBS: 36 weeks, or sooner if early delivery indicated COVID Vaccine Flu vaccine Social Barriers: Method of feeding: Method of contraception: Delivery Planning: to be discussed Anxiety/depression: IOB EPDS 9 (11/18) EPDS 18, GAD7 16 - previously on sertraline with poor response. Regimen: Lexapro 10 mg and hydroxyzine 25 mg TID prn. Resources provided for therapy (12/09) feeling w ay better Headaches: current regimen: magnesium citrate/B6 daily, Fioricet PRN, Reglan/benadryl PRN, tylenol PRN Normal PIH labs (01/06), repeat with 3T labs (01/07) Elevated home BP 144/70 RTC in 4 wks Johanny Wolf CNM Progress Notes - Office Visi t - 12/09/2024 - GA:20w2d 12/09/2024 - 20w2d - Montana Zaldivar MD Return OB Visit Avril Fowler is a 24 y.o. at 20w2d Patient started her Lexapro prescription following last visit and has been feeling w ay better . Feels she is dealing with life appropriately and not just g etting through . Has more energy, and denies any side effects from the medication. Perceiving movement. Denies bleeding, abnormal discharge, notable cramping. Objective BP 122/72 Ht 167.6 cm (5' 5.98 ) Wt 207 lb 6.4 oz (94.1 kg) LMP (LMP Unknown) BMI 33.49 kg/m TW lb 6.4 oz (4.264 kg) Physician US interpretation: Single living intrauterine gestation with growth at the 46th percentile for the established gestational age of 20 weeks and 2 days. Mild right renal pelvic dilation is noted, with an AP diameter of 0.49 cm. The remainder of the anatomy survey, cervical length, placentation and amniotic fluid are normal within the limitations of this study. Plan to reassess kidneys in the 3rd trimester. Assessment and Plan Good response to Lexapro Reviewed ultrasound findings, provided reassurance that this is a common finding that rarely represents future issues for the child, usually resolving prior to delivery but occasionally requiring follow up after delivery, plan to reassess at 32 weeks. Surveillance of [place] US Labs: A+/Immune/-/- NR/NR Genetics: LR NIPT Anatomy: EFW 46%, anatomy complete, right renal pelvis 0.49 cm - repeat at 32 weeks Placenta: Posterior GCT: 26-28 weeks 3T labs: Tdap: 27+ weeks GBS: 36 weeks, or sooner if early delivery indicated COVID Vaccine Flu vaccine Social Barriers: Method of feeding: Method of contraception: Delivery Planning: to be discussed Anxiety/depression: IOB EPDS 9 (11/18) EPDS 18, GAD7 16 - previously on sertraline with poor response. Rx sent for Lexapro 10 mg and hydroxyzine 25 mg TID prn. Resources provided for therapy (12/09) feeling w ay better Montana Zaldivar MD Progress Notes - Office Visi t - 11/18/2024 - GA:17w2d 11/18/2024 - 17w2d - Johanny Wolf CNM Return OB Visit 24 y.o. at 17w2d Pt reports life stressors causing depression/anxiety to increase. Reports had a therapist but needs to find a new one. Previously tried sertraline but reports bothersome side effects Reports zofran is not working for n/v Denies contractions, leaking of fluid and vaginal bleeding Objective BP 120/70 Ht 167.6 cm (5' 5.98 ) Wt 202 lb (91.6 kg) LMP (LMP Unknown) BMI 32.62 kg/m Body mass index is 32.62 kg/m . TW lb (1.814 kg) Assessment and Plan -- discussed depression/anxiety treatment in - recommend therapy combined with medication. Discussed associated risks to SSRI/SNRIs -- reviewed anatomy scan for next visit -- discussed relief measures for n/v and rx sent for reglan -- reviewed PTL precautions and when to present to [facility] Surveillance of [place] US Labs: A+/Immune/-/- NR/NR Genetics: LR NIPT Anatomy: Placenta: GCT: 26-28 weeks 3T labs: Tdap: 27+ weeks GBS: 36 weeks, or sooner if early delivery indicated COVID Vaccine Flu vaccine Social Barriers: Method of feeding: Method of contraception: Delivery Planning: to be discussed Anxiety/depression: EPDS 9 (11/18) EPDS 18, GAD7 16 - previously on sertraline with poor response. Rx sent for Lexapro 10 mg and hydroxyzine 25 mg TID prn. Resources provided for therapy Progress Notes - Orders Only - 11/06/2024 - GA:15w4d 11/06/2024 - 15w4d - Ivett Lea i, CNM Patient phoned the after hours exchange with concerns for vomiting with specks of fresh blood and cramping. Patient reports she had two teeth extracted yesterday and this morning she woke up vomiting. She noticed specks of fresh blood that wasn't mixed in with saliva. She reports she may not have drank much yesterday and didn't eat much. She denies vaginal bleeding and leaking fluid. Recommendations: Will send Zofran to the pharmacy. Encouraged increased fluid, and trying to eat smaller meals. Bleeding is likely due to stitches being pulled from extraction site during vomiting. Patient encouraged to present to emergency room if symptoms do not resolve with Zofran, increased hydration and nutrition. Patient verbalizes understanding and denies further questions. Ivett Benjamin CNM OPEDIC PHYSICIAN ASSISTANT Progress Notes - Clinical Morgan pport - 10/19/2024 - GA:13w0d 10/19/2024 - wd - Radha Brown, ROSANA Pt is overall doing well. She does c/o some cramping. Dating US completed in office but pt also states she had one at [facility]. Records release to be sent today. PNL ordered today. Early glucose ordered today due to BMI. NIPT discussed and ordered today. LP with [facility]. STI urine to be sent to the lab. Tdap and flu shot recommendations reviewed with the pt. H/o drug abuse 5-6 years ago. EPDS completed at NO. NOB packet reviewed with the pt. OB call schedule reviewed with the pt and her questions were answered. OPEDIC PHYSICIAN ASSISTANT Progress Notes - Office Visi t - 10/19/2024 - GA:13w0d 10/19/2024 - wd - Johanny Wolf CNM Initial OB Visit Date of Visit: 10/19/2024 12:32 PM Avril Fowler is a 24 y.o. at 13w0d by US performed with [facility] who desires establishment of care for her . Her is currently complicated by: # anxiety/depression Morning sickness? Yes - managing with daily THC Vaginal bleeding? no Planned ? no Desired ? yes Taking ? yes Taking other meds not yet cleared by OB? none Cats in household? yes Occupation? Works from home Dating: Working Critiera: 13w 0d US - records requested => EDD04/26/2025 US Date: 10/19/2024, Gest Age 13w6d => TICO 04/20/2025 Obstetric History: OB History Para Term AB Living 5 2 2 2 2 SAB IAB Ectopic Multiple Live Births 2 2 # Outcome Date GA Lbr Nile/2nd Weight Sex Type Anes PTL Lv 5 Current 4 SAB 2023 3 Term 11/09/20 39w1d 3.714 kg (8 lb 3 oz) F Vag-Spont EPI N JARVIS 2 Term 05/20/17 39w4d 2.977 kg (6 lb 9 oz) F Vag-Spont EPI N JARVIS 1 2015 Genetic History: [-] Mother's Age > 34 years [-] Sickle Cell Disease or Trait () [-] Thalasemia (Hungarian, Czech, Medit or ; MCV <80) [-] Luis Sachs Disease (Anabaptist, Cajun, Mauritanian Levy) [-] Down's Syndrome [-] Neural Tube Defects (Meningomyelocele, Spina Bifida or Anencephaly) [-] Other Developmental Delay [-] Cystic Fibrosis [-] Memo's Chorea [-] Muscular Dystrophy [-] Hemophilia [-] Other Heritable condition Medical History: Past Medical History: Diagnosis Date Anxiety Asthma Depression PCOS (polycystic ovarian syndrome) Allergies Allergen Reactions Penicillins Anaphylaxis and Hives Sulfa (Sulfonamide Antibiotics) Anaphylaxis and Hives Surgical History: Past Surgical History: Procedure Laterality Date DENTAL SURGERY Family History: Family History Problem Relation Age of Onset Breast cancer Paternal Grandmother Hypertension Maternal Grandmother Colon cancer Neg Hx Ovarian cancer Neg Hx Uterine cancer Neg Hx Social History: Social History Social History Narrative Not on file Physical Exam: Vitals:BP 114/70 Wt 198 lb (89.8 kg) LMP (LMP Unknown) BMI 31.96 kg/m General: Well appearing, pleasant female in NAD Lungs: Normal work of breathing Breasts: wnl Abdomen: soft, non-tender Extremities: Warm and well perfused, nontender, No edema Pelvic: Normal external genitalia. Speculum placed and normal appearing and closed cervix with no bleeding. Assessment and Plan: -- reviewed dating US overall consistent with TICO from outside service -- discussed care, shared practice model and option for teaching pastor vs physician only care -- recommend avoiding handling cat liter and stool -- recommend cessation of mariajuana use in . Discussed possibly contributing to n/v. Recommend Unisom and B6, rx sent for zofran Surveillance of Datin[place] T US - records requested from [place] Labs: ordered Genetics: desires Anatomy: Placenta: GCT: 26-28 weeks 3T labs: Tdap: 27+ weeks GBS: 36 weeks, or sooner if early delivery indicated COVID Vaccine Flu vaccine Social Barriers: Method of feeding: Method of contraception: Delivery Planning: to be discussed Anxiety/depression: EPDS 9, needs GAD7 SAB precautions reviewed. RTC in 4 weeks Johanny Wolf CNM OPEDIC PHYSICIAN ASSISTANT Last Filed Vital Signs Vital Sign Reading Time Taken Comments Blood Pressure 132/60 01/07/2025 1:46 PM CDT Pulse 93 01/06/2025 4:07 PM CDT Temperature 36.6 C (97.9 F) 01/06/2025 1:15 PM CDT Respiratory Rate 18 01/06/2025 1:15 PM CDT Oxygen Saturation 98% 01/06/2025 4:07 PM CDT Inhaled Oxygen Concentration - - Weight 101.2 kg (223 lb) 01/07/2025 1:46 PM CDT Height 165.1 cm (5' 5 ) 01/07/2025 1:46 PM CDT Body Mass Index 37.11 01/07/2025 1:46 PM CDT Plan of Treatment Health Maintenance Due Date Last Done Comments Cervical Cancer Screening 2000 Varicella Vaccines (1 of 2 - 13+ 2-dose series) 01/19/2013 HPV Vaccines (2 - 2-dose series) 12/06/2014 06/08/20 14 Hepatitis B Screening 01/19/2018 Regular Well Visit/Exam 18-64 01/19/2018 Covid-19 Vaccine (2 - 2023-2 5 season) 2024 12/27/2020 DTaP/Tdap/Td Vaccine (2 - Td or Tdap) 06/08/2024 06/08/2014 Influenza Vaccine (Season Ended) 2025 06/08/20 14 Depression Screening 11/18/2025 11/18/2024 Hepatitis C Screening Completed 10/19/2024 Pneumococcal vaccine <65 Aged Out No longer eligible based on patient's age to complete this topic Procedures Procedure Name Priority Date/Time Associated Diagnosis Comments EGFR STAT 01/06/2025 2:02 PM CDT URINALYSIS, MICROSCOPIC ONLY STAT 01/06/2025 2:02 PM CDT DIFFERENTIAL AUTO STAT 01/06/2025 2:0 2 PM CDT PROTEIN / CREATININE RATIO, URINE, RANDOM STAT 01/06/2025 2:02 PM CDT URIC ACID STAT 01/06/2025 2:02 PM CDT COMPREHENSIVE METABOLIC PANEL STAT 01/06/2025 2:02 PM CDT CBC WITH AUTO DIFFERENTIAL STAT 01/06/2025 2:02 PM CDT URINALYSIS AND REFLEX TO MICROSCOPIC AND CULTURE STAT 01/06/2025 2:02 PM CDT US OB 14 WEEKS OR OVER W ENDOVAGINAL Schedule Routine, Read Routine (OP Routine) 12/09/2024 10:39 AM CDT Encounter for supervision of other normal in second trimester hydronephrosis during , antepartum, single or unspecified fetus HEPATITIS C ANTIBODY Routine 10/19/2024 1:04 PM ORTHOPEDIC PHYSICIAN ASSISTANT Encounter for supervision of normal in first trimester, unspecified from Last 3 Months or Most Recently Relevant to Health Maintenance Results * eGFR (01/06/2025 2:02 PM CDT) eGFR >90 >=60 mL/min/1. 73 m2 Comment: Interpretive Data Reference Interval Normal >/= 90 mL/min/1.73m2 Mildly decreased* 60 - 89 mL/min/1.73m2 Mildly to moderately decreased 45 - 59 mL/min/1.73m2 Moderately to severely decreased 30 - 44 mL/min/1.73m2 Severely decreased 15 - 29 mL/min/1.73m2 Kidney Failure < 15 mL/min/1.73m2 *Relative to young adult level Estimated glomerular filtration rate is determined by the 2020 CKD-EPI equation recommended by the National Kidney Foundation (A Unifying Approach to GFR Estimation: Recommendations of the NKF-ASK Task Force on Reassessing the Inclusion of Race in Diagnosing Kidney Disease, JASN 2020). The CKD-EPI equation should not be used for patients with unstable renal function and has not been validated in children and those over 70. Current interpretive data was last reviewed 2021. Testing performed by: [address] [address] Blood 01/06/2025 2:02 PM CDT 01/06/2025 2:15 PM CDT us Jhon Holly MD LAB BLOOD ORDERABLES Rose hernandez Result [facility] [address] [facility] Department [place] [address] * (ABNORMAL) Differential, auto (01/06/2025 2:02 PM CDT) Neutrophil abs 7.78(H) 1.50 - 6.50 K/cumm Comment:Testing performed by : [address] [address] Imm gran abs 0.08 0.00 - 0.10 K/cumm LUIS Comment:Testing performed by : [address] [address] Lymphocyte abs 0.60(L) 0.80 - 3.30 K/cumm LUIS Comment:Testing performed by : [address] [address] Monocyte abs 0.85(H) 0.20 - 0.80 K/cumm LUIS Comment:Testing performed by : [address] [address] Eosinophil abs 0.09 0.00 - 0.50 K/cumm LUIS Comment:Testing performed by : [address] [address] Basophil abs 0.02 0.00 - 0.10 K/cumm LUIS Comment:Testing performed by : [address] [address] Neutrophil pct 82.6 % LUIS Comment: Interpretive Data Percent cell count reference ranges are not reported, since discordance with absolute values may lead to misinterpretation of CBC data. Current Interpretive Data was last revised on 2017. Testing performed by: [address] [address] Imm gran pct 0.8 % [facility] Comment: Interpretive Data Percent cell count reference ranges are not reported, since discordance with absolute values may lead to misinterpretation of CBC data. Current Interpretive Data was last revised on 2017. Testing performed by: [address] [address] Lymphocyte pct 6.4 % [facility] Comment: Interpretive Data Percent cell count reference ranges are not reported, since discordance with absolute values may lead to misinterpretation of CBC data. Current Interpretive Data was last revised on 2017. Testing performed by: [address] [address] Monocyte pct 9.0 % [facility] Comment: Interpretive Data Percent cell count reference ranges are not reported, since discordance with absolute values may lead to misinterpretation of CBC data. Current Interpretive Data was last revised on 2017. Testing performed by: [address] [address] Eosinophil pct 1.0 % [facility] Comment: Interpretive Data Percent cell count reference ranges are not reported, since discordance with absolute values may lead to misinterpretation of CBC data. Current Interpretive Data was last revised on 2017. Testing performed by: [address] [address] Basophil pct 0.2 % [facility] Comment: Interpretive Data Percent cell count reference ranges are not reported, since discordance with absolute values may lead to misinterpretation of CBC data. Current Interpretive Data was last revised on 2017. Testing performed by: [address] [address] Blood 01/06/2025 2:02 PM CDT 01/06/2025 2:15 PM CDT us Jhon Holly MD LAB BLOOD ORDERABLES Rose hernandez Result [facility] [address] [facility] [place] [address] * (ABNORMAL) Urinalysis reflex to microscopic and culture Urine, clean voided (01/06/2025 2:02 PM CDT) Color, ur Yellow Yellow Comment:Testing performed by : [address] [address] Clarity, ur Clear Clear LUIS Comment:Testing performed by : [address] [address] Specific gravity, ur 1.023 1.003 - 1.030 LUIS Comment:Testing performed by : [address] [address] pH, urine 6.5 LUIS Comment: Interpretive Data U rine pH is affected by diet, medications, systemic acid-base disturbances, and renal tubular function. pH may affect urinary stone formation. For example, urine pH below 6.0 may help reduce the tendency for calcium phosphate stones and pH greater than 6.0 may reduce the tendency for uric acid stone formation. Source: [facility] Current Interpretive Data was last revised on 2017 Testing performed by: [address] [address] Protein, ur ql Trace(A) Negative LUIS Comment:Testing performed by : [address] [address] Glucose, ur ql Negative Negative LUIS Comment:Testing performed by : [address] [address] Ketones, ur Trace(A) Negative LUIS Comment:Testing performed by : [address] [address] Bilirubin, ur Negative Negative LUIS Comment:Testing performed by : [address] [address] Blood, ur Negative Negative LUIS Comment:Testing performed by : [address] [address] Urobilinogen, ur <2.0 <2.0 mg/dL LUIS Comment:Testing performed by : [address] [address] Nitrite, ur Negative Negative LUIS RIZVI Comment:Testing performed by : [address] [address] Leukocyte esterase, ur Negative Negative LUIS RIZVI Comment:Testing performed by : [address] [address] UA reflex comment Reflex to microscopic UA will be performed. LUIS RIZVI Comment:Testing performed by : [address] [address] Urine, clean voided 01/06/2025 2:02 PM CDT 01/06/2025 2:15 PM CDT us Jhon Holly MD LAB MICROBIOLOGY - GENERA L ORDERABLES Final Result [facility] [address] [facility] Department [place] [address] * (ABNORMAL) CBC with auto differential (01/06/2025 2:02 PM CDT) WBC 9.42 3.80 - 9.90 K/cumm Comment:Testing performed by : [address] [address] Hgb 10.2(L) 11.9 - 15.5 g/dL LUIS RIZVI Comment:Testing performed by : [address] [address] Hct 29.8(L) 35.6 - 45.5 % LUIS RIZVI Comment:Testing performed by : [address] [address] Plt 242 150 - 400 K/cumm LUIS RIZVI Comment:Testing performed by : [address] [address] MPV 9.3 9.1 - 12.3 fL LUIS RIZVI Comment:Testing performed by : [address] [address] RBC 3.43(L) 3.90 - 5.20 M/cumm LUIS RIZVI Comment:Testing performed by : [address] [address] MCV 86.9 81.3 - 96.4 fL LUIS RIZVI Comment:Testing performed by : [address] [address] MCH 29.7 27.1 - 33.3 pg LUIS RIZVI Comment:Testing performed by : [address] [address] MCHC 34.2 32.3 - 35.7 g/dL LUIS RIZVI Comment:Testing performed by : [address] [address] RDW CV 13.2 11.1 - 14.9 % LUIS RIZVI Comment:Testing performed by : [address] [address] RDW SD 41.3 35.7 - 48.1 fL LUIS RIZVI Comment:Testing performed by : [address] [address] NRBC abs 0.00 0.00 - 0.01 K/cumm LUIS RIZVI Comment:Testing performed by : [address] [address] Blood 01/06/2025 2:02 PM CDT 01/06/2025 2:15 PM CDT us Jhon Holly MD LAB BLOOD ORDERABLES Rose hernandez Result [facility] [address] [facility] Department [place] [address] * Protein / creatinine ratio, urine, random (01/06/2025 2:02 PM CDT) Protein, ur, quant 14.0 mg/dL Comment: Interpretive Data No reference range established. Current interpretive data was last revised 2019. Testing performed by: [address] [address] Creatinine Ur 142.2 mg/dL LUIS RIZVI Comment: Interpretive Data No reference range established. Current interpretive data was last revised 2019. Testing performed by: [address] [address] Protein/creatinin e ratio 98.5 0.0 - 180.0 mg/g CR LIUS Comment:Testing performed by : [address] [address] Urine 01/06/2025 2:02 PM CDT 01/06/2025 2:15 PM CDT John Holly MD LAB URINE ORDERABLES Rose l Result Performing Organization Address [facility] Co de Phone Number [facility] [place] [address] * (ABNORMAL) Urinalysis, microscopic only (01/06/2025 2:02 PM CDT) WBC, ur 0-5 0 - 5 /HPF Comment:Testing performed by : [address] [address] RBC, ur 0-2 0 - 2 /HPF LUIS Comment:Testing performed by : [address] [address] Epithelial cells, squamous, ur 21-50(A) 0 - 5 /HPF LUIS Comment:Testing performed by : [address] [address] Mucous, ur Present(A) LUIS Comment:Testing performed by : [address] [address] Culture Reflex Comment Reflex conditions for urine culture (WBC >10) not met. LUIS Comment:Testing performed by : [address] [address] Urine, clean voided 01/06/2025 2:02 PM CDT 01/06/2025 2:15 PM CDT Jhon Holly MD LAB URINE ORDERABLES Rose l Result Performing Organization Address [facility] Co de Phone Number [facility] [place] [address] * Uric acid (01/06/2025 2:02 PM CDT) Uric acid 3.7 2.5 - 7.0 mg/dL Comment:Testing performed by : [address] [address] Blood 01/06/2025 2:02 PM CDT 01/06/2025 2:15 PM CDT us Jhon Holly MD LAB BLOOD ORDERABLES Rose l Result [facility] [address] [facility] Department [place] [address] * (ABNORMAL) Comprehensive metabolic panel (01/06/2025 2:02 PM CDT) Pathologist [facility] Sodium 134(L) 135 - 145 mmol/L Comment:Testing performed by : [address] [address] Potassium, pl 4.0 3.3 - 4.9 mmol/L LUIS Comment:Testing performed by : [address] [address] Chloride 102 97 - 110 mmol/L LUIS Comment:Testing performed by : [address] [address] CO2 23 22 - 32 mmol/L LUIS Comment:Testing performed by : [address] [address] Anion gap 9 2 - 15 mmol/L LUIS Comment:Testing performed by : [address] [address] BUN 7 6 - 25 mg/dL LUIS Comment:Testing performed by : [address] [address] Creatinine 0.40(L) 0.60 - 1.10 mg/dL LUIS Comment:Testing performed by : [address] [address] Glucose 79 70 - 199 mg/dL LUIS Comment: Interpretive Data Fasting glucose >/= 126 mg/dl is diagnostic for diabetes. Fasting is defined as no caloric intake for at least 8 hours. Fasting glucose between 100 mg/dl to 125 mg/dl is diagnostic of prediabetes. In a patient with classic symptoms of hyperglycemia or hyperglycemic crisis, a random glucose >/= 200 mg/dl is diagnostic for diabetes. In the absence of unequivocal hyperglycemia, results should be confirmed by repeat testing. The classification and Diagnosis of Diabetes Diabetes Care 2021; 46: S19-S40. Current interpretive data was last revised 2022. Testing performed by: [address] [address] Calcium 8.8 8.5 - 10.3 mg/dL LUIS Comment:Testing performed by : [address] [address] Bilirubin, total 0.4 0.1 - 1.2 mg/dL LUIS Comment:Testing performed by : [address] [address] Protein, pl 6.5 6.5 - 8.5 g/dL LUIS Comment:Testing performed by : [address] [address] Albumin 3.5 3.5 - 5.0 g/dL LUIS Comment:Testing performed by : [address] [address] Alk phos 59 40 - 130 Units/L LUIS Comment:Testing performed by : [address] [address] ALT 7 7 - 45 Units/L LUIS Comment:Testing performed by : [address] [address] AST 15 10 - 45 Units/L LUIS Comment:Testing performed by : [address] [address] Blood 01/06/2025 2:02 PM CDT 01/06/2025 2:15 PM CDT us Jhon Holly MD LAB BLOOD ORDERABLES Rose hernandez Result LUIS [address] [facility] Department [place] [address] * US Ob 14 Weeks Or Over W Endovaginal (12/09/2024 10:39 AM CDT) Heart Rate 146 bpm Femur Length 3.4 cm Abdominal Circumference 14.7 cm Head Circumference 17.6 cm Biparietal Diameter 4.9 cm Anatomical Region Laterality Modality Abdomen N/A Ultrasound Narrative 12/09/2024 11:22 AM CDT Previous Exam: 10.19.24 Location[place] [facility] [place] Indication: anatomy number: 1 position: cephalic Placenta location: posterior TERRA: WNL GA today by prev sono: 20w2d TICO 04.26.25 EFW today: 346g (12oz) 46% GA: 20w0d TICO 04.28.25 anatomy appearing normal: Cranial anatomy: Y Stomach: Y Bladder: Y Diaphragm: Y Kidneys: No Umbilical cord insert: Y 3v Cord: Y Spine: Y Hands/Feet: Y/Y Nose-lips/Profile: Y/Y 4ch heart: Y LVOT: Y RVOT: Y Situs - normal: Y Backup Administrator comments: Cvx: 4.22 cm TV. Placenta 3.44 cm from cervix TV. Right renal pelvis 0.49 cm AP. Physician interpretation: Single living intrauterine gestation with growth at the 46th percentile for the established gestational age of 20 weeks and 2 days. Mild right renal pelvic dilation is noted, with an AP diameter of 0.49 cm. The remainder of the anatomy survey, cervical length, placentation and amniotic fluid are normal within the limitations of this study. Plan to reassess kidneys in the 3rd trimester. us Montana Zaldivar MD IMG OB US PROCEDURES Edite d Result - Final * Hepatitis C antibody Blood (10/19/2024 1:04 PM ORTHOPEDIC PHYSICIAN ASSISTANT) Hep C Ab Nonreactive Nonreactive Comment: Antibodies to HCV not detected. Does NOT exclude the possibility of recent exposure to HCV. Current interpretive data was last revised on 22 Interpretive Data Nonreactive: Antibodies to HCV not detected. Does NOT exclude the possibility of recent exposure to HCV. Equivocal: Equivocal for HCV antibodies. Supplemental molecular testing will be automatically performed to determine infection status in accordance with current CDC screening recommendations. Reactive: Positive for HCV antibodies. This may represent current or past HCV infection. Supplemental molecular testing will be automatically performed to determine current infection status in accordance with current CDC screening recommendations. Interpretive data was last revised on 2019. Blood 10/19/2024 1:04 PM ORTHOPEDIC PHYSICIAN ASSISTANT 10/19/2024 5:11 PM ORTHOPEDIC PHYSICIAN ASSISTANT Ivett Benjamin [facility] LAB MICROBIOLOGY - GENERAL ORDERABLES Final Result LUIS [address] [facility] Department [place] [address] from Last 3 Months or Most Recently Relevant to Health Maintenance Insurance [employer] Care Teams Director Of Video Analytics Relationship Specialty Start Date End Date No, Physician PCP - General 10/19/24
--- OUTSIDE RECORDS SUMMARY | 2025-01-28 22:06 | XMS_ITS | Clinical Summary ---
Author Organization [facility] Address [address] [place] [address] Care Team Providers Care Finish Saw Operator Name Role Phone Debby You MD Primary Care Provider Source Comments [facility],non-owned Affiliates and Associated Physician Practices is amultiple site organization consisting of ambulatory clinics and hospital sitesin [place], [place], [place] and [place]. This disclosure is being madepursuant to the Care Everywhere program and may not contain all information available regarding this patient. Last updated 18.[facility] Allergies Active Allergy Reactions Criticality Noted Date Comments Penicillins Rash Low 03/26/2013 Sulfa Drugs Rash Low 03/26/2013 Medications * Be aware that medications may not be up to date on this document. Alwaysverify current medications with the patient. Melatonin 5 MG CAPS Take 5 mg by mouth. Active fexofenadine (HAN) 30 MG tablet Take 30 mg by mouth once daily. Active diphenhydrAMIN E (BENADRYL) 25 MG tablet Take by mouth every 4 hours as needed. Active ibuprofen (MOTRIN) 200 MG tablet Take 600 mg by mouth every 6 hours as needed. Active acetaminophen (TYLENOL) 325 MG tablet Take 650 mg by mouth every 4 hours as needed. Maximum allowable Acetaminophen amount = 4 Grams (4000 mg) / 24 hours. Active Social History Tobacco Use Types Packs/Day Years Used Date Smoking Tobacco: Never Assessed Comments Unknown Sex and Gender Information Value Date Recorded Sex Assigned at Not on file Legal Sex Female 10:03 AM CDT Gender Identity Not on file Sexual Orientation Not on file Last Filed Vital Signs Vital Sign Reading Time Taken Comments Blood Pressure 130/96 03/26/2013 7:59 PM CDT Pulse 80 03/26/2013 8:23 PM CDT Temperature 36.8 C (98.2 F) 03/26/2013 8:23 PM CDT Respiratory Rate 20 03/26/2013 8:23 PM CDT Oxygen Saturation - - Inhaled Oxygen Concentration - - Weight 89.5 kg (197 lb 5 oz) 03/26/2013 6:42 PM CDT Height - - Body Mass Index - - Plan of Treatment Health Maintenance Due Date Last Done Comments HIV SCREENING 01/19/2015 HPV VACCINE (1 - 3-dose series) 01/19/2015 CHLAMYDIA/GONORRHEA SCREENING 2016 HEPATITIS C SCREENING 01/15/2018 DTAP/TDAP/TD VACCINES (1 - Tdap) 01/19/2019 HEPATITIS B VACCINE (1 of 3 - 19+ 3-dose series) 01/19/2019 COVID-19 VACCINE (1 - 2023-2 5 season) 2024 DEPRESSION SCREENING 09/09/2024 INFLUENZA VACCINE (Season Ended) 2025 ZOSTER VACCINE (1 of 2) 01/19/2050 HIB VACCINE Aged Out No longer eligi ble based on patient's age to complete this topic MENINGOCOCCAL (Group B) VACC INE SHARED DECISION-MAKING Aged Out No longer eligibl e based on patient's age to complete this topic MENINGOCOCCAL GROUPS A/C/Y/W VACCINE Aged Out No longer eligible b ased on patient's age to complete this topic PNEUMOCOCCAL VACCINE Aged Out No long er eligible based on patient's age to complete [place] [address] [facility] Care Teams Finish Saw Operator Relationship Specialty Start Date End Date Debby You MD [address] [place] [id number] PCP - General Family Medicine 03/26/13
--- OUTSIDE RECORDS SUMMARY | 2025-01-28 22:06 | XMS_ITS | Clinical Summary ---
Author Organization [facility] Address [address] [place] [phone] Phone Care Team Providers Care Almond Blancher Name Role Phone Unavailable Primary Care Provider Unavailabl e Social History Tobacco Use Types Packs/Day Years Used Date Smoking Tobacco: Never Assessed Comments Unknown Sex and Gender Information Value Date Recorded Sex Assigned at Not on file Legal Sex Female 2:08 PM CDT Gender Identity Not on file Sexual Orientation Not on file Plan of Treatment Health Maintenance Due Date Last Done Comments HPV VACCINES (1 - 3-dose series) 01/19/2015 DTAP/TDAP/TD VACCINES (1 - Tdap) 01/19/2019 HEPATITIS B VACCINES (1 of 3 - 19+ 3-dose series) 01/07 CERVICAL CANCER SCREENING 01/19/2021 HPV/Cotest (21-29) 01/19/2021 PAP SMEAR 01/19/2021 INFLUENZA VACCINE (#1) 2024 Insurance [facility] [id number]
--- OUTSIDE RECORDS SUMMARY | 2025-01-28 22:06 | XMS_ITS | Referral Summary ---
Author Organization [facility] Address [address] [place] [address] Care Team Providers Care Gallery Host Name Role Phone No, Physician Primary Care Provider [phone] Encounters Date Type Department Care Team Description 01/07/2025 1:45 PM CDT Office Visit [facility] Obstetrical Gynecology [address] [place] [phone] Johanny Wolf CNM Third trimester (Primary Dx); headache in second trimester 01/06/2025 1:24 PM CDT - 01/06/2025 4:15 PM CDT Emergency [facility] OB Emergency Department [address] [place] [address] David Tadeo MD Headache in , antepartum, second trimester (Primary Dx); 24 weeks gestation of Discharge Disposition: Discharge to home or self care 12/09/2024 Telephone [facility] Obstetrical Gynecology [address] [place] [phone] Mary Vega MD 12/09/2024 10:45 AM CDT Office Visit [facility] Obstetrical Gynecology [address] [place] [phone] Montana Zaldivar MD Encounter for related examination in second trimester (Primary Dx) 12/09/2024 10:00 AM CDT Clinical Support [facility] Obstetrical Gynecology [address] [place] [phone] Encounter for supervision of other normal in second trimester (Primary Dx); hydronephrosis during , antepartum, single or unspecified fetus 11/18/2024 10:15 AM CDT Office Visit [facility] Obstetrical Gynecology [address] [place] [address] [address] [place] [phone] Johanny Wolf CNM Encounter for supervision of normal in first trimester, unspecified (Primary Dx); Anxiety and depression 11/06/2024 Orders Only [facility] Obstetrical Gynecology [address] [place] [address] [address] [place] [phone] Ivett Benjamin CNM from Last 3 Months Allergies Active Allergy Reactions Criticality Noted Date [...] Date of Delivery Comme nts Yes 04/26/2025 Social History Tobacco Use Types Packs/Day Years Used Date Smoking Tobacco: Former Cigarettes Tobacco Cessation:Counseling Given: Not Answered Williamson Depression Scale Answer Date Recorded Williamson Depression Scale Total 18 11/18/2024 The thought of harming myself has occurred to me . Never 11/18/2024 Estimated Date of Delivery Comme nts Yes 04/26/2025 Sex and Gender Information Value Date Recorded Sex Assigned at Not on file Legal Sex Female 12:46 AM FOREIGN EXCHANGE TRADER Gender Identity Not on file Sexual Orientation [...] 01/07/2025 1:46 PM CDT Plan of Treatment Not on file Procedures Procedure Name Priority Date/Time Associated Diagnosis [...] HEPATITIS C ANTIBODY Routine 10/19/2024 1:04 PM FOREIGN EXCHANGE TRADER Encounter for supervision of normal in first [...] was last reviewed 2021. Testing performed by: [address] [address] Blood 01/06/2025 2:02 PM CDT 01/06/2025 2:15 PM CDT us Jhon Holly MD LAB BLOOD ORDERABLES Rose hernandez Result [facility] [address] [facility] Department [place] [address] * (ABNORMAL) Differential, auto (01/06/2025 2:02 PM CDT) Neutrophil abs 7.78(H) 1.50 - 6.50 K/cumm Comment:Testing performed by : [address] [address] Imm gran abs 0.08 0.00 - 0.10 K/cumm LUIS Comment:Testing performed by : [address] [address] Lymphocyte abs 0.60(L) 0.80 - 3.30 K/cumm LUIS Comment:Testing performed by : [address] [address] Monocyte abs 0.85(H) 0.20 - 0.80 K/cumm LUIS Comment:Testing performed by : [address] [address] Eosinophil abs 0.09 0.00 - 0.50 K/cumm LUIS Comment:Testing performed by : [address] [address] Basophil abs 0.02 0.00 - 0.10 K/cumm LUIS Comment:Testing performed by : [address] [address] Neutrophil pct 82.6 % LUIS Comment: Interpretive Data Percent cell count reference ranges are not reported, since discordance with absolute values may lead to misinterpretation of CBC data. Current Interpretive Data was last revised on 2017. Testing performed by: [address] [address] Imm gran pct 0.8 % [facility] Comment: Interpretive Data Percent cell count reference ranges are not reported, since discordance with absolute values may lead to misinterpretation of CBC data. Current Interpretive Data was last revised on 2017. Testing performed by: [address] [address] Lymphocyte pct 6.4 % [facility] Comment: Interpretive Data Percent cell count reference ranges are not reported, since discordance with absolute values may lead to misinterpretation of CBC data. Current Interpretive Data was last revised on 2017. Testing performed by: [address] [address] Monocyte pct 9.0 % [facility] Comment: Interpretive Data Percent cell count reference ranges are not reported, since discordance with absolute values may lead to misinterpretation of CBC data. Current Interpretive Data was last revised on 2017. Testing performed by: [address] [address] Eosinophil pct 1.0 % [facility] Comment: Interpretive Data Percent cell count reference ranges are not reported, since discordance with absolute values may lead to misinterpretation of CBC data. Current Interpretive Data was last revised on 2017. Testing performed by: [address] [address] Basophil pct 0.2 % [facility] Comment: Interpretive Data Percent cell count reference ranges are not reported, since discordance with absolute values may lead to misinterpretation of CBC data. Current Interpretive Data was last revised on 2017. Testing performed by: [address] [address] Blood 01/06/2025 2:02 PM CDT 01/06/2025 2:15 PM CDT us Jhon Holly MD LAB BLOOD ORDERABLES Rose hernandez Result [facility] [address] [facility] [place] [address] * (ABNORMAL) Urinalysis reflex to microscopic and culture Urine, clean voided (01/06/2025 2:02 PM CDT) Color, ur Yellow Yellow Comment:Testing performed by : [address] [address] Clarity, ur Clear Clear LUIS Comment:Testing performed by : [address] [address] Specific gravity, ur 1.023 1.003 - 1.030 LUIS Comment:Testing performed by : [address] [address] pH, urine 6.5 LUIS Comment: Interpretive Data U rine pH is affected by diet, medications, systemic acid-base disturbances, and renal tubular function. pH may affect urinary stone formation. For example, urine pH below 6.0 may help reduce the tendency for calcium phosphate stones and pH greater than 6.0 may reduce the tendency for uric acid stone formation. Source: [employer] Current Interpretive Data was last revised on 2017 Testing performed by: [address] [address] Protein, ur ql Trace(A) Negative LUIS Comment:Testing performed by : [address] [address] Glucose, ur ql Negative Negative LUIS Comment:Testing performed by : [address] [address] Ketones, ur Trace(A) Negative LUIS Comment:Testing performed by : [address] [address] Bilirubin, ur Negative Negative LUIS Comment:Testing performed by : [address] [address] Blood, ur Negative Negative LUIS Comment:Testing performed by : [address] [address] Urobilinogen, ur <2.0 <2.0 mg/dL LUIS Comment:Testing performed by : [address] [address] Nitrite, ur Negative Negative LUIS RIZVI Comment:Testing performed by : [address] [address] Leukocyte esterase, ur Negative Negative LUIS RIZVI Comment:Testing performed by : [address] [address] UA reflex comment Reflex to microscopic UA will be performed. [facility]IS RIZVI Comment:Testing performed by : [address] [address] Urine, clean voided 01/06/2025 2:02 PM CDT 01/06/2025 2:15 PM CDT us Jhon Holly MD LAB MICROBIOLOGY - GENERA L ORDERABLES Final Result [facility] [address] [facility] Department [place] [address] * (ABNORMAL) CBC with auto differential (01/06/2025 2:02 PM CDT) WBC 9.42 3.80 - 9.90 K/cumm Comment:Testing performed by : [address] [address] Hgb 10.2(L) 11.9 - 15.5 g/dL LUIS RIZVI Comment:Testing performed by : [address] [address] Hct 29.8(L) 35.6 - 45.5 % [facility]IS RIZVI Comment:Testing performed by : [address] [address] Plt 242 150 - 400 K/cumm LUIS RIZVI Comment:Testing performed by : [address] [address] MPV 9.3 9.1 - 12.3 fL LUIS RIZVI Comment:Testing performed by : [address] [address] RBC 3.43(L) 3.90 - 5.20 M/cumm LUIS RIZVI Comment:Testing performed by : [address] [address] MCV 86.9 81.3 - 96.4 fL [facility] RIZVI Comment:Testing performed by : [address] [address] MCH 29.7 27.1 - 33.3 pg [facility]IS RIZVI Comment:Testing performed by : [address] [address] MCHC 34.2 32.3 - 35.7 g/dL [facility]IS RIZVI Comment:Testing performed by : [address] [address] RDW CV 13.2 11.1 - 14.9 % [facility] RIZVI Comment:Testing performed by : [address] [address] RDW SD 41.3 35.7 - 48.1 fL [facility] RIZVI Comment:Testing performed by : [address] [address] NRBC abs 0.00 0.00 - 0.01 K/cumm LUIS RIZVI Comment:Testing performed by : [address] [address] Blood 01/06/2025 2:02 PM CDT 01/06/2025 2:15 PM CDT us Jhon Holly MD LAB BLOOD ORDERABLES Rose hernandez Result [facility] [address] [facility] Department [place] [address] * Protein / creatinine ratio, urine, random (01/06/2025 2:02 PM CDT) Protein, ur, quant 14.0 mg/dL Comment: Interpretive Data No reference range established. Current interpretive data was last revised 2019. Testing performed by: [address] [address] Creatinine Ur 142.2 mg/dL LUIS RIVZI Comment: Interpretive Data No reference range established. Current interpretive data was last revised 2019. Testing performed by: [address] [address] Protein/creatinin e ratio 98.5 0.0 - 180.0 mg/g CR LUIS Comment:Testing performed by : [address] [address] Urine 01/06/2025 2:02 PM CDT 01/06/2025 2:15 PM CDT Jhon Holly MD LAB URINE ORDERABLES Rose l Result Performing Organization Address [facility] Co de Phone Number [facility] [facility] [place] [address] * (ABNORMAL) Urinalysis, microscopic only (01/06/2025 2:02 PM CDT) WBC, ur 0-5 0 - 5 /HPF Comment:Testing performed by : [address] [address] RBC, ur 0-2 0 - 2 /HPF LUIS Comment:Testing performed by : [address] [address] Epithelial cells, squamous, ur 21-50(A) 0 - 5 /HPF LUSI Comment:Testing performed by : [address] [address] Mucous, ur Present(A) LUIS Comment:Testing performed by : [address] [address] Culture Reflex Comment Reflex conditions for urine culture (WBC >10) not met. LUIS Comment:Testing performed by : [address] [address] Urine, clean voided 01/06/2025 2:02 PM CDT 01/06/2025 2:15 PM CDT us Jhon Holly MD LAB URINE ORDERABLES Rose l Result Performing Organization Address [facility] Co de Phone Number [address] [place] [address] * Uric acid (01/06/2025 2:02 PM CDT) Uric acid 3.7 2.5 - 7.0 mg/dL Comment:Testing performed by : [address] [address] Blood 01/06/2025 2:02 PM CDT 01/06/2025 2:15 PM CDT Jhon Holly MD LAB BLOOD ORDERABLES Rose l Result [place] [id number] [facility] Department [place] [address] * (ABNORMAL) Comprehensive metabolic panel (01/06/2025 2:02 PM CDT) Pathologist [facility] Sodium 134(L) 135 - 145 mmol/L Comment:Testing performed by : [address] [address] Potassium, pl 4.0 3.3 - 4.9 mmol/L LUIS Comment:Testing performed by : [address] [address] Chloride 102 97 - 110 mmol/L LUIS Comment:Testing performed by : [address] [address] CO2 23 22 - 32 mmol/L LUIS Comment:Testing performed by : [address] [address] Anion gap 9 2 - 15 mmol/L LUIS Comment:Testing performed by : [address] [address] BUN 7 6 - 25 mg/dL LUIS Comment:Testing performed by : [address] [address] Creatinine 0.40(L) 0.60 - 1.10 mg/dL LUIS Comment:Testing performed by : [address] [address] Glucose 79 70 - 199 mg/dL LUIS [...] was last revised 2022. Testing performed by: [address] [address] Calcium 8.8 8.5 - 10.3 mg/dL LUIS Comment:Testing performed by : [address] [address] Bilirubin, total 0.4 0.1 - 1.2 mg/dL LUIS Comment:Testing performed by : [address] [address] Protein, pl 6.5 6.5 - 8.5 g/dL LUIS Comment:Testing performed by : [address] [address] Albumin 3.5 3.5 - 5.0 g/dL LUIS Comment:Testing performed by : [address] [address] Alk phos 59 40 - 130 Units/L LUIS Comment:Testing performed by : [address] [address] ALT 7 7 - 45 Units/L LUIS Comment:Testing performed by : [address] [address] AST 15 10 - 45 Units/L LUIS Comment:Testing performed by : [address] [address] Blood 01/06/2025 2:02 PM CDT 01/06/2025 2:15 PM CDT us Jhon Holly MD LAB BLOOD ORDERABLES Rose hernandez Result [facility] [address] [facility] [place] [address] * US Ob 14 Weeks Or Over W Endovaginal (12/09/2024 10:39 AM CDT) Heart Rate 146 bpm Femur Length 3.4 cm Abdominal Circumference 14.7 cm Head Circumference 17.6 cm Biparietal Diameter 4.9 cm Anatomical Region Laterality Modality Abdomen N/A Ultrasound Narrative 12/09/2024 11:22 AM CDT Previous Exam: 10.19.24 [place] [facility] [place] Indication: anatomy number: 1 position: [...] Y RVOT: Y Situs - normal: Y Fruit Grader Operator comments: Cvx: 4.22 cm TV. Placenta 3.44 [...] Hepatitis C antibody Blood (10/19/2024 1:04 PM FOREIGN EXCHANGE TRADER) Hep C Ab Nonreactive Nonreactive Comment: Antibodies [...] revised on 2019. Blood 10/19/2024 1:04 PM FOREIGN EXCHANGE TRADER 10/19/2024 5:11 PM FOREIGN EXCHANGE TRADER us Ivett Benjamin CNM LAB MICROBIOLOGY - GENERAL ORDERABLES Final Result [facility] [address] [facility] [place] [address] from Last 3 Months or Most Recently Relevant to Health Maintenance Insurance [employer] IBEW Care Teams Gallery Host Relationship Specialty Start Date End Date No, Physician PCP - General 10/19/24
--- OUTSIDE RECORDS SUMMARY | 2025-01-28 22:06 | XMS_ITS | Clinical Summary ---
Author Organization [facility] Care Team Providers Care Telephone Order Dispatcher Name Role Phone Unavailable Primary Care Provider Unavailabl e Social History Tobacco Use Types Packs/Day Years Used Date Smoking Tobacco: Never Assessed Comments Unknown Sex and Gender Information Value Date Recorded Sex Assigned at Not on file Legal Sex Female 1:04 PM CDT Gender Identity Not on file Sexual Orientation Not on file Plan of Treatment Health Maintenance Due Date Last Done Comments Hepatitis C Virus (HCV) Screening 2000 Human Papillomavirus (HPV) Immunization (2 - 2-dose series) 12/06/2014 06/08/2014 Hepatitis B Immunization (1 of 3 - 19+ 3-dose series) 01/19/2019 Pap Smear 01/19/2021 Influenza Immunization (#1) 2024 06/08/2014 SARS-COV-2 Immunization ( - season) 2024 12/27/2020 Respiratory Syncytial Virus (RSV) Immunization (Adult) (1 - 1-dose 75+ series) 01/19/2075 DTaP/Tdap/Td Immunization Discontinued 06/08/2014 TdaP Immunization Completed 06/08/2014 Meningococcal Immunization (ACWY) Completed 018 Pneumococcal Immunization Combined Aged Out No longer eligible based on patient's age to complete this topic Rotavirus Immunization Aged Out No lo nger eligible based on patient's age to complete this topic
--- OUTSIDE RECORDS SUMMARY | 2025-01-28 22:06 | XMS_ITS | Data Portability ---
Author Organization [facility] [employer] , [facility] Address [address] [place] [address] Assessment No assessment recorded. Plan of Treatment Reminders Order Date Submit Date Provider Last Modified By Organization Details Last Modified Time Details Appointments None recorded. Lab culture, urine 2024 025 mphoria [facility], [address] [place], [address], 23:11:57 test, urine 2024 025 [email or web address] [facility] [address], [address], 13:12:31 Referral None recorded. Procedures None recorded. Surgeries None recorded. Imaging US, transvagina l 2024 025 DREW Not available 19:28:10 Medication Orders 28 mg iron-800 mcg tablet 2024 025 DREW [id number], [address], [place], [place], [id number], 13:47:29 Patient TargetsNo targets recorded. Patient InstructionsNo instructions recorded. Reason for Referral None Reported. Results Created Date Observation Date Name Description Value Unit Range Abnormal Flag Note LastModifiedBy Organization Detail LastModifiedTime 09/21/19 25 09/22/2024 CULTU RE, URINE , ROUTI NE culture, urine, routine SEE NOTE CULTU RE, URINE , ROUTI NE Micro Numbe r: [id number] Test Statu s: Final Speci men Sourc e: Urine Speci men Quali ty: Adequ ate Resul t: No Growt h Not Available [email or web address] [facility] [address], [place], [address], 09/22/2024 23:11:57 09/21/19 25 09/21/2024 pregn amisha test, urine HCG positi ve Not Available [facility] [place] [address] [place], [address], 09/21/2024 12:10:39 09/21/19 25 09/21/2024 US, trans vagin al No observ ation record ed. [address], [place], [address], 09/21/2024 19:57:53 Result Notes None recorded. 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 Procedures Surgical History None recorded. Imaging Results Imaging Date Name Status LastModified by Organization Details LastModified Time 09/21/2024 US, transvaginal completed [email or web address] [address], [place], [address], 09/21/2024 19:57:53 Procedure Notes None recorded. Medical Equipment None Reported. Allergies Allergen ID Allergen Name Allergen Category Reaction Reaction Severity Criticality Documentation Date Start Date Code Code System Note Provider Name and Address Organization Details Recorded Time 982045 Product containin g penicilli n (product) medicatio n Not available Not available Not available 09/21/2024 47075 8001 SNOMED Candida Maxlistveronica nguyen [email or web address] 13:02:34 [id number] Substance with sulfonami de structure and antibacte rial mechanism of action (substanc e) medicatio n Not available Not available Not available 09/21/2024 97546 8003 SNOMED Candida Max[facility]veronica nguyen [email or web address] 13:02:40 Medications Name Sig Start Date Stop Date Status Note LastModified by Organization Details LastModified Time doxycycline hyclate 100 mg capsule TAKE 1 CAPSULE BY MOUTH TWICE DAILY FOR 10 DAYS 09/21 completed Not Available Not Available Not Available clindamycin HCl 300 mg capsule TAKE 1 CAPSULE BY MOUTH EVERY 8 HOURS FOR 7 DAYS 09/21 completed Not Available Not Available Not Available prednisone 20 mg tablet TAKE 2 TABLETS BY MOUTH DAILY FOR 5 DAYS 09/21 completed Not Available Not Available Not Available methylpredn isolone 4 mg tablets in a dose pack FOLLOW PACKAGE DIRECTION S 09/21 completed Not Available Not Available Not Available albuterol sulfate HFA 90 mcg/actuati on aerosol inhaler INHALE 1 TO 2 INHALATIO N BY MOUTH EVERY 4 HOURS NEEDED FOR WHEEZING 09/21 completed Not Available Not Available Not Available azithromyci n 500 mg tablet TAKE 4 TABLETS BY MOUTH DAILY FOR 1 DAY 09/21 completed Not Available Not Available Not Available 28 mg iron-800 mcg tablet TAKE 1 TABLET BY MOUTH EVERY DAY active Not Available Not Available No t Available cefixime 400 mg capsule TAKE 1 CAPSULE BY MOUTH DAILY FOR 7 DAYS 09/21 completed Not Available Not Available Not Available Vitals Date Recorded Body weight Body mass index (BMI) Body height Systolic blood pressure Diastolic blood pressure Provider Name and Address Organization Details Last Updated DateTime 09/21/2024 36210.72 g 33.1 kg/m2 167.64 cm 112 mm[Hg] 70 mm[Hg] Candida Das [email or web address] 13:02:21 Social History Question Answer Notes LastModified by Organizat ion Details LastModified Time Tobacco Smoking Status Current Every Day Smoker Candidakarey Das patrick [email or web address] 09/21/2024 13:07:08 Are You Blind Or Do You Have Difficulty Seeing? No Information not available 09/21/2024 Are You Deaf Or Do You Have Serious Difficulty Hearing? No Information not available 09/21/2024 What Type Of Diet Are You Following? REGULAR Information not available 09/21/2024 Which Illicit Or Recreational Drugs Have You Used? Marijuana Information not available 09/21/2024 How Many Children Do You Have? 2 Information not available 09/21/2024 What Is Your Relationship Status? Information not available 09/21/2024 Are You Sexually Active? Yes Information not available 09/21/2024 At What Age Did You Start Smoking Tobacco? 16 Information not available 09/21/2024 How Much Tobacco Do You Smoke? 0.5 PPD Information not available 09/21/2024 Have You Used IV Drugs? No Information not available 09/21/2024 Sex: Unknown Functional Status Question Answer Note LastModified by Organizat ion Details LastModified Time Do you use any illicit or recreational drugs? Yes Information not available 09/21/2024 Do you or have you ever used any other forms of tobacco or nicotine? Yes Information not available 09/21/2024 What is your level of alcohol consumption? None Information not available 09/21/2024 Do you or have you ever used smokeless tobacco? Never used smokeless tobacco Information not available 09/21/2024 Do you or have you ever used e-cigarettes or vape? Current user of electronic cigarettes Information not available 09/21/2024 What is your exercise level? None Information not available 09/21/2024 Mental Status None recorded. Family History Relationship Description Onset Age of this Age Resolved Age Notes LastModified by Organization Details LastModified Time Paternal Grandmother Malignant tumor of breast Not available 09/09 13:05:36 Maternal Grandmother Basophilic leukemia Not available 09/09 13:05:48 Medical History Condition Response Hypothyroidism Y Arthritis Y Polycystic Ovarian Syndrome Y Gynecological History Statement/Question Response Date of Last Colonoscopy Date of last HPV Date of LMP Most Recent Bone Density Date of Last Pap Smear Most Recent Mammogram Current Control Method None Age at Menarche 14 Obstetrics History GPAL:G 3 P 2 0 1 2 Type Value Full Term 2 Spontaneous 1 Living 2 Total 3 Past Encounters Encounter ID Performer Location Encounter Start Date Encounter Closed Date Diagnosis/Indication Diagnosis SNOMED-CT Code Diagnosis ICD10 Code Diagnosis Note [id number] Marissa Maier CNM [facility] [place] [address] [place] [address] 09/21/2024 12:45:18 09/21/2024 13:50:08 detection examination 81459164 Z32.00 test positive 920423589 Z32.01 US shows viable IUP @ 9 wks. TICO based on US - 04/24/2025. +CA 164 bpm.Uncomp licated prior SVDs x 2. Denies any problems w/previous pregnancie sAdvised pt to f/u immediatel y if temp>101.; abdominal pain, vaginal bleeding greater than 1 pad/hr for greater than 2 hours; vaginal bleeding with or without cramping; bleeding w/clots; cramping like a period.- discussed common concerns during - nausea of - advised patient to keep cracker at the bedside to eat before getting out of bed in the morning, eat smaller more frequent meals during the day, and avoid mixing solids and liquids in the same meal. add protein snack at bedtime; ]Vit B6 & unisom as needed - vitamins and DHA avoidance of heavy exertion increase fluid intake rest - Instructed that it is important for women to get the whooping cough vaccine in the third trimester of every Health Concerns Section Related Observation LastModified by Organization Detai ls LastModified Time None Recorded Concern Status LastModified by Organization Details LastModified Time None Recorded Advance Directives Directive None Recorded Payers Insurance Date Sequence Insurance Name Policy Number Policy Sethi Covered Member ID Sethi Member ID Guarantor Name 09/21/2024 1 [employer] [id number] Mayco Fowler [id number] Avril Fowler 09/21/2024 1 [employer] [place] [id number] [employer] (POS) [id number] Avril Fowler [id number] Avril Malcolm Notes Date Note Type Note Provider Name and Address Organization Details Recorded Time 09/21/2024 text/html Confirmation VisitReported bypatient.obstetric s and gynecologyLMP: (unsure); no bleeding between periods Marissa Maier CNM [address] [facility], [place], [address], [facility] 09/21/2024 13:50:00 OBGyn Episode Ob Episode Information Episode Created Date Number of Fetuses Patient Bloodtype Patient rh Status Prepregnancy Weight lbs Domestic Partner Domestic Partner Phone Father Name Automotive Airconditioning Mechanic Status 09/21/19 25 1 CLOSED Fetus Data First Name Last Name Admitted to NICU Weight (g) Sex Living Outcome Pediatric Complications Fetus ID Race Codes Race Delivery Type 3713.55 [id number] F Full Term [id number] Tico Calculation Initial Tico Date Initial Exam Date Initial Exam Provider Initial Ultrasound Date Last Menstrual Period Date Ultra Sound Weeks Gestation 0 Eighteen To Twenty Week Tico Update Ultra Sound Date Fundal Height At Umbil Quickening Date Ultra Sound Latest Weeks Gestation Final Tico Confirmed By Final Tico Confirmed Date Final Tico Date Ultra Sound Latest Days Gestation 0 0 Menstrual History Last Menstrual Date Menses Monthly On Bcp Conception Prior Menses Frequency Hcg Plus Date Menarche Onset Age Delivery Information Delivery Date Delivery Type Labor Anesthesia Weeks Gestation Incision Type Labor Labor Length Hrs Delivered By Post Complications Tubal Sterilization Discharge Date Comments 1 [facility]- idural 39.1 Discharge Information Feeding Method Contraceptive Method Maternal HG B and HCT Levels Ob Episode Information Episode Created Date Number of Fetuses Patient Bloodtype Patient rh Status Prepregnancy Weight lbs Domestic Partner Domestic Partner Phone Father Name Automotive Airconditioning Mechanic Status 09/21/19 25 1 CLOSED Fetus Data First Name Last Name Admitted to NICU Weight (g) Sex Living Outcome Pediatric Complications Fetus ID Race Codes Race Delivery Type 2976.47 [id number] F Full Term [id number] Tico Calculation Initial Tico Date Initial Exam Date Initial Exam Provider Initial Ultrasound Date Last Menstrual Period Date Ultra Sound Weeks Gestation 0 Eighteen To Twenty Week Tico Update Ultra Sound Date Fundal Height At Umbil Quickening Date Ultra Sound Latest Weeks Gestation Final Tico Confirmed By Final Tico Confirmed Date Final Tico Date Ultra Sound Latest Days Gestation 0 0 Menstrual History Last Menstrual Date Menses Monthly On Bcp Conception Prior Menses Frequency Hcg Plus Date Menarche Onset Age Delivery Information Delivery Date Delivery Type Labor Anesthesia Weeks Gestation Incision Type Labor Labor Length Hrs Delivered By Post Complications Tubal Sterilization Discharge Date Comments 7 [facility] 38.4 Discharge Information Feeding Method Contraceptive Method Maternal HG B and HCT Levels
--- OUTSIDE RECORDS SUMMARY | 2025-01-28 22:54 | XMS_ITS | Referral Summary ---
Author Organization [facility] Address [address] [place] [address] Care Team Providers Care Yarn Handler Name Role Phone No, Physician Primary Care Provider [phone] Encounters Date Type Department Care Team Description 01/07/2025 1:45 PM CDT Office Visit [facility] Obstetrical Gynecology [address] [place] [phone] Johanny Wolf CNM Third trimester (Primary Dx); headache in second trimester 01/06/2025 1:24 PM CDT - 01/06/2025 4:15 PM CDT Emergency [facility] [address] [place] [address] David Tadeo MD Headache in , antepartum, second trimester (Primary Dx); 24 weeks gestation of Discharge Disposition: Discharge to home or self care 12/09/2024 Telephone [facility] Obstetrical Gynecology [address] [place] [phone] Mary Vega MD 12/09/2024 10:45 AM CDT Office Visit [facility] Obstetrical Gynecology [address] [place] [phone] [place] Zaldivar MD Encounter for related examination in second trimester (Primary Dx) 12/09/2024 10:00 AM CDT Clinical Support [facility] Obstetrical Gynecology [address] [place] [phone] Encounter for supervision of other normal in second trimester (Primary Dx); hydronephrosis during , antepartum, single or unspecified fetus 11/18/2024 10:15 AM CDT Office Visit [facility] Obstetrical Gynecology [address] [place] [address] [address] [place] [phone] Johanny Wolf CNM Encounter for supervision of normal in first trimester, unspecified (Primary Dx); Anxiety and depression 11/06/2024 Orders Only [facility] Obstetrical Gynecology [address] [place] [address] [address] [place] [phone] Ivett Benjamin CNM from Last 3 Months [...] Former Cigarettes Tobacco Cessation:Counseling Given: Not Answered Canon Depression Scale Answer Date Recorded Canon Depression Scale Total 18 11/18/2024 The thought of harming myself has occurred to me . 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 Testing performed by: [address] [address] Blood 01/06/2025 2:02 PM CDT 01/06/2025 2:15 PM CDT us Jhon Holly MD LAB BLOOD ORDERABLES Rose hernandez Result [facility] [address] [facility] Department [place] [address] * (ABNORMAL) Differential, auto (01/06/2025 2:02 PM CDT) Neutrophil abs 7.78(H) 1.50 - 6.50 K/cumm Comment:Testing performed by : [address] [address] Imm gran abs 0.08 0.00 - 0.10 K/cumm LUIS Comment:Testing performed by : [address] [address] Lymphocyte abs 0.60(L) 0.80 - 3.30 K/cumm LUIS Comment:Testing performed by : [address] [address] Monocyte abs 0.85(H) 0.20 - 0.80 K/cumm LUIS Comment:Testing performed by : [address] [address] Eosinophil abs 0.09 0.00 - 0.50 K/cumm LUIS Comment:Testing performed by : [address] [address] Basophil abs 0.02 0.00 - 0.10 K/cumm LUIS Comment:Testing performed by : [address] [address] Neutrophil pct 82.6 % [facility] Comment: Interpretive Data Percent cell count reference ranges are not reported, since discordance with absolute values may lead to misinterpretation of CBC data. Current Interpretive Data was last revised on 2017. Testing performed by: [address] [address] Imm gran pct 0.8 % [facility] Comment: Interpretive Data Percent cell count reference ranges are not reported, since discordance with absolute values may lead to misinterpretation of CBC data. Current Interpretive Data was last revised on 2017. Testing performed by: [address] [address] Lymphocyte pct 6.4 % [facility] Comment: Interpretive Data Percent cell count reference ranges are not reported, since discordance with absolute values may lead to misinterpretation of CBC data. Current Interpretive Data was last revised on 2017. Testing performed by: [address] [address] Monocyte pct 9.0 % [facility] Comment: Interpretive Data Percent cell count reference ranges are not reported, since discordance with absolute values may lead to misinterpretation of CBC data. Current Interpretive Data was last revised on 2017. Testing performed by: [address] [address] Eosinophil pct 1.0 % [facility] Comment: Interpretive Data Percent cell count reference ranges are not reported, since discordance with absolute values may lead to misinterpretation of CBC data. Current Interpretive Data was last revised on 2017. Testing performed by: [address] [address] Basophil pct 0.2 % [facility] Comment: Interpretive Data Percent cell count reference ranges are not reported, since discordance with absolute values may lead to misinterpretation of CBC data. Current Interpretive Data was last revised on 2017. Testing performed by: [address] [address] Blood 01/06/2025 2:02 PM CDT 01/06/2025 2:15 PM CDT us Jhon Holly MD LAB BLOOD ORDERABLES Rose hernandez Result [facility] [address] [facility] Department [place] [address] * (ABNORMAL) Urinalysis reflex to microscopic and culture Urine, clean voided (01/06/2025 2:02 PM CDT) Color, ur Yellow Yellow Comment:Testing performed by : [address] [address] Clarity, ur Clear Clear LUIS Comment:Testing performed by : [address] [address] Specific gravity, ur 1.023 1.003 - 1.030 LUIS Comment:Testing performed by : [address] [address] pH, urine 6.5 [facility] Comment: Interpretive Data U rine pH is affected by diet, medications, systemic acid-base disturbances, and renal tubular function. pH may affect urinary stone formation. For example, urine pH below 6.0 may help reduce the tendency for calcium phosphate stones and pH greater than 6.0 may reduce the tendency for uric acid stone formation. Source: [employer] Current Interpretive Data was last revised on 2017 Testing performed by: [address] [address] Protein, ur ql Trace(A) Negative LUIS Comment:Testing performed by : [address] [address] Glucose, ur ql Negative Negative [facility]IS Comment:Testing performed by : [address] [address] Ketones, ur Trace(A) Negative [facility]IS Comment:Testing performed by : [address] [address] Bilirubin, ur Negative Negative LUIS Comment:Testing performed by : [address] [address] Blood, ur Negative Negative LUIS Comment:Testing performed by : [address] [address] Urobilinogen, ur <2.0 <2.0 mg/dL LUIS Comment:Testing performed by : [address] [address] Nitrite, ur Negative Negative [facility]IS RIZVI Comment:Testing performed by : [address] [address] Leukocyte esterase, ur Negative Negative [facility] RIZVI Comment:Testing performed by : [address] [address] UA reflex comment Reflex to microscopic UA will be performed. [facility] RIZVI Comment:Testing performed by : [address] [address] Urine, clean voided 01/06/2025 2:02 PM CDT 01/06/2025 2:15 PM CDT us Jhon Holly MD LAB MICROBIOLOGY - GENERA L ORDERABLES Final Result [facility] [address] [facility] Department [place] [address] * (ABNORMAL) CBC with auto differential (01/06/2025 2:02 PM CDT) WBC 9.42 3.80 - 9.90 K/cumm Comment:Testing performed by : [address] [address] Hgb 10.2(L) 11.9 - 15.5 g/dL [facility] RIZVI Comment:Testing performed by : [address] [address] Hct 29.8(L) 35.6 - 45.5 % [facility]VI Comment:Testing performed by : [address] [address] Plt 242 150 - 400 K/cumm [facility]IZVI Comment:Testing performed by : [address] [address] MPV 9.3 9.1 - 12.3 fL [facility] RIZVI Comment:Testing performed by : [address] [address] RBC 3.43(L) 3.90 - 5.20 M/cumm [facility] RIZVI Comment:Testing performed by : [address] [address] MCV 86.9 81.3 - 96.4 fL [facility] RIZVI Comment:Testing performed by : [address] [address] MCH 29.7 27.1 - 33.3 pg [facility] RIZVI Comment:Testing performed by : [address] [address] MCHC 34.2 32.3 - 35.7 g/dL [facility] RIZVI Comment:Testing performed by : [address] [address] RDW CV 13.2 11.1 - 14.9 % [facility] RIZVI Comment:Testing performed by : [address] [address] RDW SD 41.3 35.7 - 48.1 fL [facility]VI Comment:Testing performed by : [address] [address] NRBC abs 0.00 0.00 - 0.01 K/cumm [facility] Comment:Testing performed by : [address] [address] Blood 01/06/2025 2:02 PM CDT 01/06/2025 2:15 PM CDT us Jhon Holly MD LAB BLOOD ORDERABLES Rose hernandez Result [facility] [address] [facility] Department [place] [address] * Protein / creatinine ratio, urine, random (01/06/2025 2:02 PM CDT) Protein, ur, quant 14.0 mg/dL Comment: Interpretive Data No reference range established. Current interpretive data was last revised 2019. Testing performed by: [address] [address] Creatinine Ur 142.2 mg/dL [facility] Comment: Interpretive Data No reference range established. Current interpretive data was last revised 2019. Testing performed by: [address] [address] Protein/creatinin e ratio 98.5 0.0 - 180.0 mg/g CR [facility] Comment:Testing performed by : [address] [address] Urine 01/06/2025 2:02 PM CDT 01/06/2025 2:15 PM CDT Jhon Holly MD LAB URINE ORDERABLES Rose l Result Performing Organization Address [facility] Co de Phone Number [facility] [place] [address] * (ABNORMAL) Urinalysis, microscopic only (01/06/2025 2:02 PM CDT) WBC, ur 0-5 0 - 5 /HPF Comment:Testing performed by : [address] [address] RBC, ur 0-2 0 - 2 /HPF LUIS Comment:Testing performed by : [address] [address] Epithelial cells, squamous, ur 21-50(A) 0 - 5 /HPF LUIS Comment:Testing performed by : [address] [address] Mucous, ur Present(A) LUIS Comment:Testing performed by : [address] [address] Culture Reflex Comment Reflex conditions for urine culture (WBC >10) not met. LUIS Comment:Testing performed by : [address] [address] Urine, clean voided 01/06/2025 2:02 PM CDT 01/06/2025 2:15 PM CDT us Jhon Holly MD LAB URINE ORDERABLES Rose l Result Performing Organization Address [facility] Co de Phone Number [address] [place] [address] * Uric acid (01/06/2025 2:02 PM CDT) Uric acid 3.7 2.5 - 7.0 mg/dL Comment:Testing performed by : [address] [address] Blood 01/06/2025 2:02 PM CDT 01/06/2025 2:15 PM CDT Jhon Holly MD LAB BLOOD ORDERABLES Rose l Result [place] [id number] [facility] Department [place] [address] * (ABNORMAL) Comprehensive metabolic panel (01/06/2025 2:02 PM CDT) Pathologist [facility] Sodium 134(L) 135 - 145 mmol/L Comment:Testing performed by : [address] [address] Potassium, pl 4.0 3.3 - 4.9 mmol/L LUIS Comment:Testing performed by : [address] [address] Chloride 102 97 - 110 mmol/L LUIS Comment:Testing performed by : [address] [address] CO2 23 22 - 32 mmol/L [facility] Comment:Testing performed by : [address] [address] Anion gap 9 2 - 15 mmol/L LUIS Comment:Testing performed by : [address] [address] BUN 7 6 - 25 mg/dL LUIS Comment:Testing performed by : [address] [address] Creatinine 0.40(L) 0.60 - 1.10 mg/dL LUIS Comment:Testing performed by : [address] [address] Glucose 79 70 - 199 mg/dL LUIS [...] was last revised 2022. Testing performed by: [address] [address] Calcium 8.8 8.5 - 10.3 mg/dL LUIS Comment:Testing performed by : [address] [address] Bilirubin, total 0.4 0.1 - 1.2 mg/dL [facility] Comment:Testing performed by : [address] [address] Protein, pl 6.5 6.5 - 8.5 g/dL [facility] Comment:Testing performed by : [address] [address] Albumin 3.5 3.5 - 5.0 g/dL [facility]IS Comment:Testing performed by : [address] [address] Alk phos 59 40 - 130 Units/L LUIS Comment:Testing performed by : [address] [address] ALT 7 7 - 45 Units/L LUIS Comment:Testing performed by : [address] [address] AST 15 10 - 45 Units/L LUIS Comment:Testing performed by : [address] [address] Blood 01/06/2025 2:02 PM CDT 01/06/2025 2:15 PM CDT us Jhon Holly MD LAB BLOOD ORDERABLES Rose hernandez Result [facility] [address] [facility] Department [place] [address] * US Ob 14 Weeks Or Over W Endovaginal (12/09/2024 10:39 AM CDT) Heart Rate 146 bpm Femur Length 3.4 cm Abdominal Circumference 14.7 cm Head Circumference 17.6 cm Biparietal Diameter 4.9 cm Anatomical Region Laterality Modality Abdomen N/A Ultrasound Narrative 12/09/2024 11:22 AM CDT Previous Exam: 10.19.24 Location: [facility] OB Kat[place] Indication: anatomy number: 1 position: [...] Y RVOT: Y Situs - normal: Y Technical Sales Advisor comments: Cvx: 4.22 cm TV. Placenta 3.44 [...] Hepatitis C antibody Blood (10/19/2024 1:04 PM MALT HOUSE SUPERVISOR) Hep C Ab Nonreactive Nonreactive Comment: Antibodies [...] revised on 2019. Blood 10/19/2024 1:04 PM MALT HOUSE SUPERVISOR 10/19/2024 5:11 PM MALT HOUSE SUPERVISOR us Ivett Benjamin CNM LAB MICROBIOLOGY - GENERAL ORDERABLES Final Result [facility] [address] [facility] Department [place] [address] from Last 3 Months or Most Recently Relevant to Health Maintenance Insurance [employer]BEW Care Teams Yarn Handler Relationship Specialty Start Date End Date No, Physician PCP - General 10/19/24
--- OUTSIDE RECORDS SUMMARY | 2025-01-28 22:55 | XMS_ITS | Clinical Summary ---
Author Organization [facility] Address [address] [place] [address] Care Team Providers Care Senior Solutions Consultant Name Role Phone Debby You MD Primary Care Provider Source Comments [facility],non-owned Affiliates and Associated Physician Practices is amultiple site organization consisting of ambulatory clinics and hospital sitesin [place], [place], [place] and [place]. This disclosure is being madepursuant to the Care Everywhere program and may not contain all information available regarding this patient. Last updated 18.[facility] Allergies Active Allergy Reactions Criticality Noted Date [...] patient's age to complete [place] [address] [facility] Care Teams Senior Solutions Consultant Relationship Specialty Start Date End Date Debby You MD [address] [place] [id number] PCP - General Family Medicine 03/26/13
--- OUTSIDE RECORDS SUMMARY | 2025-01-28 22:55 | XMS_ITS | Clinical Summary ---
Author Organization [facility] Address [address] [place] [phone] Phone Care Team Providers Care Laboratory Engineer Name Role Phone Unavailable Primary Care Provider [...] SMEAR 01/19/2021 INFLUENZA VACCINE (#1) 2024 Insurance [facility] [id number]
--- OUTSIDE RECORDS SUMMARY | 2025-01-28 22:55 | XMS_ITS | Clinical Summary ---
Author Organization [facility] Address [address] [place] [address] Care Team Providers Care Competency Evaluated Nurse Aide Name Role Phone No, Physician Primary Care Provider [phone] Allergies Active Allergy Reactions Criticality Noted Date [...] Description 01/07/2025 1:45 PM CDT Office Visit [facility] Obstetrical Gynecology [address] [place] [phone] Johanny Wolf CNM Third trimester (Primary Dx); headache in second trimester 01/06/2025 1:24 PM CDT - 01/06/2025 4:15 PM CDT Emergency [facility] [address] [place] [address] David Tadeo MD Headache in , antepartum, second trimester (Primary Dx); 24 weeks gestation of Discharge Disposition: Discharge to home or self care 12/09/2024 10:45 AM CDT Office Visit [facility] Obstetrical Gynecology [address] [place] [phone] Montana Zaldivar MD Encounter for related examination in second trimester (Primary Dx) 12/09/2024 10:00 AM CDT Clinical Support [facility] Obstetrical Gynecology [address] [place] [phone] Encounter for supervision of other normal in second trimester (Primary Dx); hydronephrosis during , antepartum, single or unspecified fetus 12/09/2024 Telephone [facility] Obstetrical Gynecology [address] [place] [phone] Mary Vega MD 11/18/2024 10:15 AM CDT Office Visit [facility] Obstetrical Gynecology [address] [place] [address] [address] [place] [phone] Johanny Wolf CNM Encounter for supervision of normal in first trimester, unspecified (Primary Dx); Anxiety and depression 11/06/2024 Orders Only [facility] Obstetrical Gynecology [address] [place] [address] [address] [place] [phone] Ivett Benjamin CNM from Last [...] Former Cigarettes Tobacco Cessation:Counseling Given: Not Answered [place] Depression Scale Answer Date Recorded [place] Depression Scale Total 18 11/18/2024 The thought of harming myself has occurred to me . Never 11/18/2024 Estimated Date of Delivery Comme nts Yes 04/26/2025 Sex and Gender Information Value Date Recorded Sex Assigned at Not on file Legal Sex Female 12:46 AM DREDGEMASTER Gender Identity Not on file Sexual Orientation [...] Epidur al N Livin g Complications:None Delivery Location:[place] [address] [facility] Current Summary Episode Dates Number of Fetuses [...] Delivery Plans Planned delivery method:Vaginal Planned delivery location:[facility] Planned anesthesia:Epidural Acceptable blood products:All Overview Surveillance of EDC base on US from [facility] A+/Immune/HIV and Hep B neg, RPR NR [...] and denies further questions. Ivett Benjamin CNM GEMASTER Progress Notes - Clinical Morgan pport - 10/19/2024 - GA:13w0d 10/19/2024 - wd - Radha Brown, ROSANA Pt is overall doing well. She does c/o some cramping. Dating US completed in office but pt also states she had one at [facility]. Records release to be sent today. PNL ordered today. Early glucose ordered today due to BMI. NIPT discussed and ordered today. LP with [facility]. STI urine to be sent to the lab. Tdap and flu shot recommendations reviewed with the pt. H/o drug abuse 5-6 years ago. EPDS completed at [facility]. NOB packet reviewed with the pt. OB call schedule reviewed with the pt and her questions were answered. GEMASTER Progress Notes - Office Visi t - 10/19/2024 - GA:13w0d 10/19/2024 - wd - Johanny Wolf CNM Initial OB Visit Date of Visit: 10/19/2024 12:32 PM Avril Fowler is a 24 y.o. at 13w0d by US performed with [facility] who desires establishment of care for her [...] Cell Disease or Trait () [-] Thalasemia (Mongolian, Costa Rican, Medit or ; MCV <80) [-] Luis Sachs Disease (Sabianist, Cajun, Jordanian [place]) [-] Down's Syndrome [-] Neural Tube Defects [...] care, shared practice model and option for editor book vs physician only care -- recommend avoiding handling cat liter and stool -- recommend cessation of mariajuana use in . Discussed possibly contributing to n/v. Recommend Unisom and B6, rx sent for zofran Surveillance of Datinst T US - records requested from [facility] Labs: ordered Genetics: desires Anatomy: Placenta: GCT: 26-28 weeks 3T labs: Tdap: 27+ weeks GBS: 36 weeks, or sooner if early delivery indicated COVID Vaccine Flu vaccine Social Barriers: Method of feeding: Method of contraception: Delivery Planning: to be discussed Anxiety/depression: EPDS 9, needs GAD7 SAB precautions reviewed. RTC in 4 weeks Johanny Wolf CNM GEMASTER Last Filed Vital Signs Vital Sign Reading [...] HEPATITIS C ANTIBODY Routine 10/19/2024 1:04 PM DREDGEMASTER Encounter for supervision of normal in first [...] last reviewed 2021. Testing performed by: [address] [address] Blood 01/06/2025 2:02 PM CDT 01/06/2025 2:15 PM CDT us Jhon Holly MD LAB BLOOD ORDERABLES Rose hernandez Result [facility] [address] [facility] Department [place] [address] * (ABNORMAL) Differential, auto (01/06/2025 2:02 PM CDT) Neutrophil abs 7.78(H) 1.50 - 6.50 K/cumm Comment:Testing performed by : [address] [address] Imm gran abs 0.08 0.00 - 0.10 K/cumm LUIS Comment:Testing performed by : [address] [address] Lymphocyte abs 0.60(L) 0.80 - 3.30 K/cumm LUIS Comment:Testing performed by : [address] [address] Monocyte abs 0.85(H) 0.20 - 0.80 K/cumm LUIS Comment:Testing performed by : [address] [address] Eosinophil abs 0.09 0.00 - 0.50 K/cumm LUIS Comment:Testing performed by : [address] [address] Basophil abs 0.02 0.00 - 0.10 K/cumm LUIS Comment:Testing performed by : [address] [address] Neutrophil pct 82.6 % LUIS Comment: Interpretive Data Percent cell count reference ranges are not reported, since discordance with absolute values may lead to misinterpretation of CBC data. Current Interpretive Data was last revised on 2017. Testing performed by: [address] [address] Imm gran pct 0.8 % [facility] Comment: Interpretive Data Percent cell count reference ranges are not reported, since discordance with absolute values may lead to misinterpretation of CBC data. Current Interpretive Data was last revised on 2017. Testing performed by: [address] [address] Lymphocyte pct 6.4 % [facility] Comment: Interpretive Data Percent cell count reference ranges are not reported, since discordance with absolute values may lead to misinterpretation of CBC data. Current Interpretive Data was last revised on 2017. Testing performed by: [address] [address] Monocyte pct 9.0 % [facility] Comment: Interpretive Data Percent cell count reference ranges are not reported, since discordance with absolute values may lead to misinterpretation of CBC data. Current Interpretive Data was last revised on 2017. Testing performed by: [address] [address] Eosinophil pct 1.0 % [facility] Comment: Interpretive Data Percent cell count reference ranges are not reported, since discordance with absolute values may lead to misinterpretation of CBC data. Current Interpretive Data was last revised on 2017. Testing performed by: [address] [address] Basophil pct 0.2 % [facility] Comment: Interpretive Data Percent cell count reference ranges are not reported, since discordance with absolute values may lead to misinterpretation of CBC data. Current Interpretive Data was last revised on 2017. Testing performed by: [address] [address] Blood 01/06/2025 2:02 PM CDT 01/06/2025 2:15 PM CDT us Jhon Holly MD LAB BLOOD ORDERABLES Rose hernandez Result [facility] [address] [facility] [place] [address] * (ABNORMAL) Urinalysis reflex to microscopic and culture Urine, clean voided (01/06/2025 2:02 PM CDT) Color, ur Yellow Yellow Comment:Testing performed by : [address] [address] Clarity, ur Clear Clear LUIS Comment:Testing performed by : [address] [address] Specific gravity, ur 1.023 1.003 - 1.030 LUIS Comment:Testing performed by : [address] [address] pH, urine 6.5 LUIS Comment: Interpretive Data U rine pH is affected by diet, medications, systemic acid-base disturbances, and renal tubular function. pH may affect urinary stone formation. For example, urine pH below 6.0 may help reduce the tendency for calcium phosphate stones and pH greater than 6.0 may reduce the tendency for uric acid stone formation. Source: [facility] Current Interpretive Data was last revised on 2017 Testing performed by: [address] [address] Protein, ur ql Trace(A) Negative LUIS Comment:Testing performed by : [address] [address] Glucose, ur ql Negative Negative LUIS Comment:Testing performed by : [address] [address] Ketones, ur Trace(A) Negative LUIS Comment:Testing performed by : [address] [address] Bilirubin, ur Negative Negative LUIS Comment:Testing performed by : [address] [address] Blood, ur Negative Negative LUIS Comment:Testing performed by : [address] [address] Urobilinogen, ur <2.0 <2.0 mg/dL LUIS Comment:Testing performed by : [address] [address] Nitrite, ur Negative Negative LUIS RIZVI Comment:Testing performed by : [address] [address] Leukocyte esterase, ur Negative Negative LUIS RIZVI Comment:Testing performed by : [address] [address] UA reflex comment Reflex to microscopic UA will be performed. [facility] RIZVI Comment:Testing performed by : [address] [address] Urine, clean voided 01/06/2025 2:02 PM CDT 01/06/2025 2:15 PM CDT us Jhon Holly MD LAB MICROBIOLOGY - GENERA L ORDERABLES Final Result [facility] [address] [facility] Department [place] [address] * (ABNORMAL) CBC with auto differential (01/06/2025 2:02 PM CDT) WBC 9.42 3.80 - 9.90 K/cumm Comment:Testing performed by : [address] [address] Hgb 10.2(L) 11.9 - 15.5 g/dL LUIS RIZVI Comment:Testing performed by : [address] [address] Hct 29.8(L) 35.6 - 45.5 % [facility] RIZVI Comment:Testing performed by : [address] [address] Plt 242 150 - 400 K/cumm [facility]IS RIZVI Comment:Testing performed by : [address] [address] MPV 9.3 9.1 - 12.3 fL [facility] RIZVI Comment:Testing performed by : [address] [address] RBC 3.43(L) 3.90 - 5.20 M/cumm [facility] RIZVI Comment:Testing performed by : [address] [address] MCV 86.9 81.3 - 96.4 fL [facility] RIZVI Comment:Testing performed by : [address] [address] MCH 29.7 27.1 - 33.3 pg [facility] RIZVI Comment:Testing performed by : [address] [address] MCHC 34.2 32.3 - 35.7 g/dL [facility] RIZVI Comment:Testing performed by : [address] [address] RDW CV 13.2 11.1 - 14.9 % [facility] RIZVI Comment:Testing performed by : [address] [address] RDW SD 41.3 35.7 - 48.1 fL [facility] RIZVI Comment:Testing performed by : [address] [address] NRBC abs 0.00 0.00 - 0.01 K/cumm [facility] RIZVI Comment:Testing performed by : [address] [address] Blood 01/06/2025 2:02 PM CDT 01/06/2025 2:15 PM CDT us Jhon Holly MD LAB BLOOD ORDERABLES Rose hernandez Result [facility] [address] [facility] Department [place] [address] * Protein / creatinine ratio, urine, random (01/06/2025 2:02 PM CDT) Protein, ur, quant 14.0 mg/dL Comment: Interpretive Data No reference range established. Current interpretive data was last revised 2019. Testing performed by: [address] [address] Creatinine Ur 142.2 mg/dL LUIS RIZVI Comment: Interpretive Data No reference range established. Current interpretive data was last revised 2019. Testing performed by: [address] [address] Protein/creatinin e ratio 98.5 0.0 - 180.0 mg/g CR LUIS Comment:Testing performed by : [address] [address] Urine 01/06/2025 2:02 PM CDT 01/06/2025 2:15 PM CDT Jhon Holly MD LAB URINE ORDERABLES Rose l Result Performing Organization Address [facility] Co de Phone Number [facility] [place] [address] * (ABNORMAL) Urinalysis, microscopic only (01/06/2025 2:02 PM CDT) WBC, ur 0-5 0 - 5 /HPF Comment:Testing performed by : [address] [address] RBC, ur 0-2 0 - 2 /HPF LUIS Comment:Testing performed by : [address] [address] Epithelial cells, squamous, ur 21-50(A) 0 - 5 /HPF LUIS Comment:Testing performed by : [address] [address] Mucous, ur Present(A) LUIS Comment:Testing performed by : [address] [address] Culture Reflex Comment Reflex conditions for urine culture (WBC >10) not met. LUIS Comment:Testing performed by : [address] [address] Urine, clean voided 01/06/2025 2:02 PM CDT 01/06/2025 2:15 PM CDT Jhon Holly MD LAB URINE ORDERABLES Rose l Result Performing Organization Address [facility] Co de Phone Number [facility] [place] [address] * Uric acid (01/06/2025 2:02 PM CDT) Uric acid 3.7 2.5 - 7.0 mg/dL Comment:Testing performed by : [address] [address] Blood 01/06/2025 2:02 PM CDT 01/06/2025 2:15 PM CDT us Jhon Holly MD LAB BLOOD ORDERABLES Rose l Result [facility] [address] [facility] Department [place] [address] * (ABNORMAL) Comprehensive metabolic panel (01/06/2025 2:02 PM CDT) Pathologist [facility] Sodium 134(L) 135 - 145 mmol/L Comment:Testing performed by : [address] [address] Potassium, pl 4.0 3.3 - 4.9 mmol/L LUIS Comment:Testing performed by : [address] [address] Chloride 102 97 - 110 mmol/L LUIS Comment:Testing performed by : [address] [address] CO2 23 22 - 32 mmol/L LUIS Comment:Testing performed by : [address] [address] Anion gap 9 2 - 15 mmol/L LUIS Comment:Testing performed by : [address] [address] BUN 7 6 - 25 mg/dL LUIS Comment:Testing performed by : [address] [address] Creatinine 0.40(L) 0.60 - 1.10 mg/dL LUIS Comment:Testing performed by : [address] [address] Glucose 79 70 - 199 mg/dL LUIS [...] last revised 2022. Testing performed by: [address] [address] Calcium 8.8 8.5 - 10.3 mg/dL LUIS Comment:Testing performed by : [address] [address] Bilirubin, total 0.4 0.1 - 1.2 mg/dL LUIS Comment:Testing performed by : [address] [address] Protein, pl 6.5 6.5 - 8.5 g/dL LUIS Comment:Testing performed by : [address] [address] Albumin 3.5 3.5 - 5.0 g/dL LUIS Comment:Testing performed by : [address] [address] Alk phos 59 40 - 130 Units/L LUIS Comment:Testing performed by : [address] [address] ALT 7 7 - 45 Units/L LUIS Comment:Testing performed by : [address] [address] AST 15 10 - 45 Units/L LUIS Comment:Testing performed by : [address] [address] Blood 01/06/2025 2:02 PM CDT 01/06/2025 2:15 PM CDT us Jhon Holly MD LAB BLOOD ORDERABLES Rose hernandez Result [facility] [address] [facility] Department [place] [address] * US Ob 14 Weeks Or Over W Endovaginal (12/09/2024 10:39 AM CDT) Heart Rate 146 bpm Femur Length 3.4 cm Abdominal Circumference 14.7 cm Head Circumference 17.6 cm Biparietal Diameter 4.9 cm Anatomical Region Laterality Modality Abdomen N/A Ultrasound Narrative 12/09/2024 11:22 AM CDT Previous Exam: 10.19.24 [place] [facility] [place] Indication: anatomy number: 1 position: [...] Y RVOT: Y Situs - normal: Y Mold Runner comments: Cvx: 4.22 cm TV. Placenta 3.44 [...] Hepatitis C antibody Blood (10/19/2024 1:04 PM DREDGEMASTER) Hep C Ab Nonreactive Nonreactive Comment: Antibodies [...] revised on 2019. Blood 10/19/2024 1:04 PM DREDGEMASTER 10/19/2024 5:11 PM DREDGEMASTER Ivett Benjamin [facility] LAB MICROBIOLOGY - GENERAL ORDERABLES Final Result [facility] [address] [facility] [place] [address] from Last 3 Months or Most Recently Relevant to Health Maintenance Insurance [employer]W Care Teams Competency Evaluated Nurse Aide Relationship Specialty Start Date End Date No, Physician PCP - General 10/19/24
--- NOTE | 2025-01-28 22:57 | ED_ITS ---
HPI - Dental/Oral General Chief complaint: Skin/Abscess/Foreign Body Stated complaint: Facial swelling/pain Time Seen by Provider: 01/28/25 22:38 Source: patient Mode of arrival: ambulatory Limitations: no limitations History of Present Illness HPI Narrative: Patient presents the emergency department for toothache. Reports she is currently seeing a dentist. She is scheduled for a root canal soon. Taking clindamycin. Reports she has had swelling and discomfort in her gums in the area. Denies fevers. Complaint: tooth pain Location: Tooth # (8, 9) Related Data Allergies Allergy/AdvReac Type Severity Reaction Status Date / Time Penicillins Allergy Mild Unknown Verified 01/28/25 22:04 Sulfa (Sulfonamide Allergy Mild Unknown Verified 01/28/25 22:04 Antibiotics) pumpkin Allergy Hives Verified 01/28/25 22:04 Review of Systems Review of Systems: CONSTITUTIONAL: Denies fever ENT: Reports dentalgia All systems reviewed & are unremarkable except as noted in HPI and below PMFSH Past Medical History Medical History Allergic rhinitis Anxiety Depression Migraine headache Family History Family History Other No problems noted. Mother Rheumatoid arthritis Hypertension Hypothyroidism GERD with esophagitis Father ADD (attention deficit disorder) GERD (gastroesophageal reflux disease) Anxiety Grandparent Bipolar disorder Hypothyroidism Hypertension Depression Diabetes mellitus Sleep apnea Social History Social History Smoking status: Former smoker Tobacco type: e-cigarettes/vaping Alcohol intake: current Substance use: never Substance use type: marijuana Do You Feel Safe in your Home?: Yes Lack of Transportation: No Lack of Food: Never True Current Housing: I Have Housing Concerned About Future Housing: No Difficulty Paying Gas/Electric Bills: No Difficulty Paying for Meds: No Currently Unemployed: No Education: High School Diploma/GED Difficulty w/ Childcare or Family Care: No Living arrangements: with family Occupation/Education: occupation Gender identity (if verbalized by the patient): Female Sexual Orientation (if Verbalized by the Patient): Straight or Heterosexual Spiritual care concerns: No Exam Narrative: GENERAL: Well-appearing, well-nourished, and in no acute distress. HEAD: Normocephalic, atraumatic. EYES: EOMI. ENT: Nares clear, no rhinorrhea or epistaxis. Mucous membranes moist. Oropharynx without tonsillar hypertrophy exudate or other lesions. Poor dentition. Gingival inflammation surrounding teeth 8, 9 with heavy plaque buildup NECK: Supple. No adenopathy or masses. CHEST: No respiratory distress. HEART: Regular rate EXTREMITIES: Normal range of motion. No edema. SKIN: Warm, dry, no rash. NEURO: No focal deficits. Alert and oriented x3. PSYCH: Normal mood and affect Course Vital Signs Vital signs: Vital Signs Temperature 96.8 F L 01/28/25 22:05 Pulse Rate 99 01/28/25 22:05 Respiratory Rate 15 01/28/25 22:05 Blood Pressure 124/65 01/28/25 22:05 Pulse Oximetry 99 01/28/25 22:05 Oxygen Delivery Room Air 01/28/25 22:05 Temperature 96.8 F L 01/28/25 22:05 Pulse Rate 99 01/28/25 22:05 Respiratory Rate 15 01/28/25 22:05 Blood Pressure 124/65 01/28/25 22:05 Pulse Oximetry 99 01/28/25 22:05 Oxygen Delivery Room Air 01/28/25 22:05 MDM - Dental/Oral MDM Narrative Medical decision making narrative: Patient presents the emergency department with gingival irritation, gingivitis. She does have poor dentition with heavy plaque buildup. Will be started on chlorhexidine rinse. She is currently following with a dentist for this. Patient is currently 28 weeks . She does not have any related concerns. Differential Diagnosis Differential diagnosis: Likely dental caries, toothache and other (Gingivitis) Critical Care Time Critical Care Time Critical Care Time: No Discharge Plan Discharge Clinical Impression: Gingivitis Patient Disposition: Home Condition: Stable Instructions: Gingivitis (ED) Additional Instructions: Return to the Emergency Department if you experience fever >101, increasing swelling and redness of your tooth, or any other symptoms that are concerning to you Take antibiotic as prescribed. Peridex as prescribed Follow up with your dentist Patient Language: Georgian Prescriptions: New chlorhexidine gluconate [Peridex] 0.12 % mouthwash 15 ml mucous membrane DAILY 7 Days Qty: 118 0RF Rx Instructions: Swish for 30 seconds after toothbrushing, then spit No Action meloxicam 15 mg tablet 15 mg PO DAILY Qty: 30 2RF bupropion HCl 150 mg tablet extended release 24 hr See Rx Instructions .ROUTE .COMPLEX Qty: 90 3RF Dose Instruction: TAKE 1 TABLET DAILY IN THE MORNING Rx Instructions: TAKE 1 TABLET DAILY IN THE MORNING sertraline 100 mg tablet 100 mg PO DAILY Qty: 90 1RF Follow-up/Referrals: Mateo Chris MD [Primary Care Provider] -
[2025-01-28 23:51] VITALS: BP 132/68; PULSE 88; RESP 17; O2SAT 100
[2025-01-28 23:53] VITALS: BP 132/68; PULSE 88; RESP 17; O2SAT 100
== END 2025-01-28 23:55 | disposition home or self-care (01) ==
PROVIDERS: Emergency Provider Physician Assistant; PCP Family Medicine
DX: O99.613 Diseases of the digestive system complicating pregnancy, third trimester (principal); K05.10 Chronic gingivitis, plaque induced; O99.343 Other mental disorders complicating pregnancy, third trimester; F41.9 Anxiety disorder, unspecified; F32.A Depression, unspecified; Z87.891 Personal history of nicotine dependence; Z79.899 Other long term (current) drug therapy; Z3A.28 28 weeks gestation of pregnancy
CPT/HCPCS: 99283